=== PATIENT | female | born 1985 | race African-American/Black ===

== ENCOUNTER 2024-07-14 08:51 | Outpatient (CLI) | payer OTHER, SELFPAY ==
--- NOTE | ~2024-07-14 | MM_ITS ---
EXAMINATION: MM screening sanju BI w foreign HISTORY: Screening TECHNIQUE: Craniocaudal and mediolateral oblique 3-D tomosynthesis images were obtained and synthetic 2-D images were generated. CAD analysis was submitted and interpreted. COMPARISON: None. BREAST PARENCHYMAL COMPOSITION: The breasts are heterogeneously dense, which may obscure small masses . FINDINGS: 7.5mm asymmetry within the upper outer right breast for which spot compression followed by a possible ultrasound is suggested. Otherwise unremarkable parenchymal pattern without suspicious microcalcifications or architectural di stortion. IMPRESSION: 7.5mm asymmetry within the upper outer right breast for which spot compression followed by a possible ultrasound is suggested. BI-RADS Category 0: Incomplete: Needs additional imaging evaluation. Reviewed, dictated and finalized at location A.
--- OUTSIDE RECORDS SUMMARY | 2024-07-14 09:38 | XMS_ITS | Clinical Summary ---
Author Organization [facility] [place] [address] [place] [address] [place] [id number] Care Team Providers Care Senior Engineering Associate Name Role Phone No, Physician Primary Care Provider [phone] Allergies No known active allergies Active Problems Problem Noted Date Diagnosed Date Abnormal CT scan 12/23/2023 Social History Tobacco Use Types Packs/Day Years Used Date Smoking Tobacco: Never Assessed Personal Safety Answer Date Recorded Have you ever been in or are you currently in a harmful physical or emotional relationship or is someone making you feel afraid or unsafe? 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 Gender Identity Not on file Sexual Orientation Not on file Obstetrics History Para Term AB IAB SAB Ectopic Multiple Livin g Live Births 1 Date Outcome GA Total Labor Labor/2nd/3rd Weight Sex Type Anes PTL Nikky A1 A5 Name Clin Last Filed Vital Signs Vital Sign Reading Time Taken Comments Blood Pressure 128/96 12/23/2023 12:10 PM CDT Pulse 72 12/23/2023 12:10 PM CDT Temperature 36.7 C (98.1 F) 12/23/2023 6:37 AM CDT Respiratory Rate 19 12/23/2023 6:37 AM CDT Oxygen Saturation 100% 12/23/2023 12:10 PM CDT Inhaled Oxygen Concentration - - Weight 80.8 kg (178 lb 2.1 oz) 12/23/2023 6:37 A M CDT Height 160 cm (5' 3 ) 12/23/2023 6:37 AM CDT Body Mass Index 31.55 12/23/2023 6:37 AM CDT Plan of Treatment Health Maintenance Due Date Last Done Comments Breast Cancer Screening-Mammogram 1983 Cervical Cancer Screening 1983 Depression Screening 1983 Hepatitis C Screening 1983 DTaP/Tdap/Td Vaccine (6 - Tdap) 1994 12/13/1987, 11/08/1986, 10/08/1985, Additional history exists Varicella Vaccines (1 of 2 - 13+ 2-dose series) 1996 Hepatitis B Screening 2001 Regular Well Visit/Exam 18-64 2001 Influenza Vaccine (#1) 2023 HPV Vaccines Aged Out No longer eligi ble based on patient's age to complete this topic Pneumococcal vaccine <65 Aged Out No longer eligible based on patient's age to complete this topic Insurance [employer] [place], [place] Care Teams Senior Engineering Associate Relationship Specialty Start Date End Date No, Physician PCP - General 03/19/22
--- OUTSIDE RECORDS SUMMARY | 2024-07-14 09:38 | XMS_ITS | Referral Summary ---
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
--- OUTSIDE RECORDS SUMMARY | 2024-07-14 09:38 | XMS_ITS | Data Portability ---
Author Organization [facility] Address [address] [place] [address] Assessment Encounter Date Assessment Date Assessment LastModified by Organization Details LastModified Time 06/21/2017 06/21/2017 32 y.o. recent termination. C/o vaginal itching. Discussed inability to really assess for yeast infection with vaginal bleeding but due to recent antibiotic use Diflucan would be ordered. CBC due to pt's. description of heavy post procedure bleeding. Cultures obtained. Sumit to be contacted for positive results, will RTC in September for annuals. Not available 06/21/2017 15:04:34 Plan of Treatment Reminders Order Date Submit Date Provider Last Modified By Organization Details Last Modified Time Details Appointments None recorded. Lab CBC w/ auto diff 2022 023 [facility], [address] [place] [address], [address], [place], [address], 3 15:11:38 lipid panel, serum 2022 023 [facility], [address] [place] [address], [address], [place], [address], 3 15:11:39 CMP, serum or plasma 2022 023 [facility], [address] [place] [address], [address], [place], [address], 3 15:11:38 HbA1c (hemoglobi n A1c), blood 2022 023 [facility], [address], [address], [place], [address], 3 15:11:38 TSH, ultra-sens itive, serum 2022 023 [facility], [address] [facility], [address], [place], [address], 3 15:11:38 vitamin D, 25-hydroxy , total, serum 2022 023 [facility], [address] [facility], [address], [place], [address], 3 15:11:37 CT + NG + TV, DNA, urine/swab 2017 018 [facility] (Lab), [address], [place], [address], 8 23:06:54 CBC w/ diff [email or web address] [place] [address] (Lab), [address], [place], [address], 3 15:07:55 CT + NG + TV, DNA, urine/swab 2016 017 [facility] (Lab), [address], [place], [address], 7 21:14:17 RPR (rapid plasma reagin), serum 2016 017 [facility] (Lab), [address], [place], [address], 7 07:17:40 HIV (1+2) Ab screen, serum 2016 017 [facility] (Lab), [address], [place], [address], 7 09:22:01 wet mount, vaginal 2016 017 [email or web address] In-Office Order, Internal Use Only DO Not Attach Compendium DO Not Attach Compendium, Do Not Delete/merge, [id number] 7 16:14:06 wet mount, vaginal 2016 017 [email or web address] 3 In-Office Order, Internal Use Only DO Not Attach Compendium DO Not Attach Compendium, Do Not Delete/merge, [id number] 7 12:29:18 wet mount, vaginal 2016 017 GLORY In-Office Order, Internal Use Only DO Not Attach Compendium DO Not Attach Compendium, Do Not Delete/merge, [id number] 7 11:58:37 CT + NG DNA, PCR, unspecifie d specimen 2016 017 [email or web address] [facility], [address] [facility], [address], [place], [address], 7 10:25:45 wet mount, vaginal 2015 016 [id number] In-Office Order, Internal Use Only DO Not Attach Compendium DO Not Attach Compendium, Do Not Delete/merge, [id number] 6 04:33:05 CT + NG DNA, PCR, unspecifie d specimen 2015 016 [email or web address] [facility], [address] [facility], [address], [place], [address], 6 10:17:07 Referral None recorded. Procedures excision, skin tag (PROC) 2016 017 Not available 3 15:07:55 Surgeries None recorded. Imaging None recorded. Medication Orders fluticason e propionate 50 mcg/actuat ion nasal spray,susp ension 2022 023 [id number] [facility], [address], [place], [address], 3 15:11:33 Diflucan 150 mg tablet 2017 018 Not available 8 15:04:46 fluconazol e 150 mg tablet 2016 017 INTERFACE Not available 7 16:14:11 metronidaz ole 500 mg tablet 2016 017 INTERFACE Not available 7 16:14:12 fluconazol e 150 mg tablet 2016 017 INTERFACE Not available 7 12:29:22 Zithromax 500 mg tablet 2016 017 INTERFACE Not available 7 12:29:23 Flagyl 500 mg tablet 2015 016 [email or web address]_ [id number] Not available 6 04:33:15 Patient Targets Encounter Date Encounter Id Patient Goals Patient Target Last Modified By Organization Details Last Modified Time To avoid unplanned Not available 06/21/2017 15:05:35 Patient Instructions Encounter Date Encounter Id Patient Instructions Last Modified By Organization Details Last Modified Time 03/28/2016 [id number] bacterial vaginosis: care instructions [email or web address] Not available 03/28/2016 16:53:49 05/24/2016 [id number] skin tag removal : care instructions [email or web address] Not available 05/24/2016 13:01:22 R&B of skin tag removal discussed pt. accepts Suture tied around skin tag. Info on skin tag removal given Not available 05/24/2016 12:29:16 10/02/2016 [id number] bacterial vaginosis: care instructions Not available 10/02/2016 16:17:59 pt. wants nexplanon again. pt. told I will be leaving end of September. Not available 10/02/2016 16:13:59 06/21/2017 [id number] Pt. instructed t o RTC if needs for protection arise Not available 06/21/2017 15:05:57 01/17/2023 [id number] allergies: care instructions Not available 01/17/2023 15:11:29 managing your allergies: care instructions Not available 01/17/2023 15:11:29 A healthy lifestyle: care instructions Not available 01/17/2023 15:11:29 Reason for Referral None Reported. Results Created Date Observation Date Name Description Value Unit Range Abnormal Flag Note LastModifiedBy Organization Detail LastModifiedTime 10/03/19 17 10/02/2016 dimas rawls Clue Cells positi ve Not Available In-Office Order Internal Use Only DO Not Attach Compendium DO Not Attach Compendium, Do Not Delete/merge, [id number] 10/02/2016 16:11:02 10/03/19 17 10/02/2016 dimas rawls Trichomonas negati ve Not Available In-Office Order Internal Use Only DO Not Attach Compendium DO Not Attach Compendium, Do Not Delete/merge, [id number] 10/02/2016 16:11:02 05/24/19 17 05/24/2016 dimas rawls Clue Cells negati ve Not Available In-Office Order Internal Use Only DO Not Attach Compendium DO Not Attach Compendium, Do Not Delete/merge, [id number] 05/24/2016 12:14:42 05/24/19 17 05/24/2016 dimas rawls Trichomonas negati ve Not Available In-Office Order Internal Use Only DO Not Attach Compendium DO Not Attach Compendium, Do Not Delete/merge, [id number] 05/24/2016 12:14:42 03/28/20 16 03/28/2016 dimas rawls Clue Cells positi ve Not Available In-Office Order Internal Use Only DO Not Attach Compendium DO Not Attach Compendium, Do Not Delete/merge, [id number] 03/28/2016 15:33:11 03/28/20 16 03/28/2016 dimas rawls Trichomonas negati ve Not Available In-Office Order Internal Use Only DO Not Attach Compendium DO Not Attach Compendium, Do Not Delete/merge, [id number] 03/28/2016 15:33:11 02/23/20 16 02/23/2016 dimas rawls Clue Cells positi ve Not Available In-Office Order Internal Use Only DO Not Attach Compendium DO Not Attach Compendium, Do Not Delete/merge, [id number] 02/23/2016 15:29:05 02/23/20 16 02/23/2016 wet mount , vagin al Trichomonas negati ve Not Available In-Office Order Internal Use Only DO Not Attach Compendium DO Not Attach Compendium, Do Not Delete/merge, [id number] 02/23/2016 15:29:05 01/18/20 16 01/18/2016 urina lysis , dipst ick Leukocytes Negati ve Not Available In-Office Order Internal Use Only DO Not Attach Compendium DO Not Attach Compendium, Do Not Delete/merge, [id number] 01/18/2016 16:04:02 01/18/20 16 01/18/2016 urina lysis , dipst ick Nitrite negati ve Not Available In-Office Order Internal Use Only DO Not Attach Compendium DO Not Attach Compendium, Do Not Delete/merge, [id number] 01/18/2016 16:04:02 01/18/20 16 01/18/2016 urina lysis , dipst ick Urobilinogen 1 Not Available In-Of fice Order Internal Use Only DO Not Attach Compendium DO Not Attach Compendium, Do Not Delete/merge, 01/18/2016 16:04:02 01/18/20 16 01/18/2016 urina lysis , dipst ick Protein Negati ve Not Available In-Office Order Internal Use Only DO Not Attach Compendium DO Not Attach Compendium, Do Not Delete/merge, 01/18/2016 16:04:02 01/18/20 16 01/18/2016 urina lysis , dipst ick pH 6.0 Not Available In-Office Order Internal Use Only DO Not Attach Compendium DO Not Attach Compendium, Do Not Delete/merge, 01/18/2016 16:04:02 01/18/20 16 01/18/2016 urina lysis , dipst ick Blood Non-He molyze d: Trace Not Available In-Office Order Internal Use Only DO Not Attach Compendium DO Not Attach Compendium, Do Not Delete/merge, 01/18/2016 16:04:02 01/18/20 16 01/18/2016 urina lysis , dipst ick Specific Mangham 1.030 Not Available In-Off ice Order Internal Use Only DO Not Attach Compendium DO Not Attach Compendium, Do Not Delete/merge, 01/18/2016 16:04:02 01/18/20 16 01/18/2016 urina lysis , dipst ick Ketone Negati ve Not Available In-Office Order Internal Use Only DO Not Attach Compendium DO Not Attach Compendium, Do Not Delete/merge, 01/18/2016 16:04:02 01/18/20 16 01/18/2016 urina lysis , dipst ick Bilirubin Negati ve Not Available In-Office Order Internal Use Only DO Not Attach Compendium DO Not Attach Compendium, Do Not Delete/merge, 01/18/2016 16:04:02 01/18/20 16 01/18/2016 urina lysis , dipst ick Glucose Negati ve Not Available In-Office Order Internal Use Only DO Not Attach Compendium DO Not Attach Compendium, Do Not Delete/merge, 01/18/2016 16:04:02 01/18/20 16 01/18/2016 urina lysis , dipst ick Appearance Clear Not Available In-Offi ce Order Internal Use Only DO Not Attach Compendium DO Not Attach Compendium, Do Not Delete/merge, 01/18/2016 16:04:02 01/18/20 16 01/18/2016 urina lysis , dipst ick Color Yellow Not Available In-Office Order Internal Use Only DO Not Attach Compendium DO Not Attach Compendium, Do Not Delete/merge, 01/18/2016 16:04:02 01/18/20 16 01/18/2016 pregn aman test, urine HCG negati ve Not Available In-Office Order Internal Use Only DO Not Attach Compendium DO Not Attach Compendium, Do Not Delete/merge, 01/18/2016 15:43:34 03/28/20 16 03/30/2016 chlam ydiA/ Gonoc occus , ROBERT chlamydia trachomatis, ROBERT NEGATI VE negati ve Not Available [facility] (Lab) [address] [facility], [place], [address], 03/30/2016:19:07 03/28/20 16 03/30/2016 chlam ydiA/ Gonoc occus , ROBERT neisseria gonorrhoeae, ROBERT NEGATI VE negati ve Not Available [facility] (Lab) [address] [place], [address], 03/30/2016 09:19:07 05/24/19 17 2016 chlam ydia + gonor teo DNA panel , unspe cifie d speci men chlamydia trachomatis, ROBERT NEGATI VE negati ve Not Available [facility] (Lab) [address] [place], [address], 2016 09:10:27 05/24/19 17 2016 chlam ydia + gonor teo DNA panel , unspe cifie d speci men neisseria gonorrhoeae, ROBERT NEGATI VE negati ve Not Available [facility] (Lab) [address] [place], [address], 2016 09:10:27 10/03/19 17 10/03/2016 RPR (rapi d plasm a reagi n), serum RPR NON REACTI VE non reacti ve Not Available [facility] (Lab) [address] [facility], [place], [address], 10/03/2016 07:17:40 10/03/19 17 10/03/2016 HIV (1+2) Ab scree n, serum HIV 4TH generation NON REACTI VE non reacti ve Not Available [facility] (Lab) [address] [place], [address], 10/03/2016 09:22:01 10/03/19 17 10/03/2016 CT + NG + TV, DNA, urine /swab chlamydia by ROBERT NEGATI VE negati ve Not Available [facility] (Lab) [address] [place], [address], 10/03/2016 21:14:17 10/03/19 17 10/03/2016 CT + NG + TV, DNA, urine /swab gonococcus by ROBERT NEGATI VE negati ve Not Available [facility] (Lab) [address] [place], [address], 10/03/2016 21:14:17 10/03/19 17 10/03/2016 CT + NG + TV, DNA, urine /swab trich vag by ROBERT NEGATI VE negati ve Not Available [facility] (Lab) [address] [place], [address], 10/03/2016 21:14:17 06/22/19 18 06/21/2017 CBC w/ auto diff WBC 5.1 K/uL 3.4-10 .8 Not Available [facility] (Lab) [address] [place], [address], 06/21/2017 19:51:43 06/22/19 18 06/21/2017 CBC w/ auto diff red blood count 4.4 M/uL 4.2-5. 4 Not Available [facility] (Lab) [address] [facility], [place], [address], 06/21/2017 19:51:43 06/22/19 18 06/21/2017 CBC w/ auto diff hemoglobin 12.4 g/dL 11.5-1 5.5 Not Available [facility] (Lab) [address] [place], [address], 06/21/2017 19:51:43 06/22/19 18 06/21/2017 CBC w/ auto diff hematocrit 37.9 % 36.0-4 8.0 Not Available [facility] (Lab) [address] [place], [address], 06/21/2017 19:51:43 06/22/19 18 06/21/2017 CBC w/ auto diff MCV 87 fL 80-95 Not Available [facility] (Lab) [address] [place], [address], 06/21/2017 19:51:43 06/22/19 18 06/21/2017 CBC w/ auto diff MCH 28 pg 27-32 Not Available [facility] (Lab) [address] [place], [address], 06/21/2017 19:51:43 06/22/19 18 06/21/2017 CBC w/ auto diff MCHC 33 g/dL 32-36 Not Available [facility] (Lab) [address], [place], [address], 06/21/2017 19:51:43 06/22/19 18 06/21/2017 CBC w/ auto diff platelets 292 K/uL 155-37 9 Not Available [facility] (Lab) [address] [place], [address], 06/21/2017 19:51:43 06/22/19 18 06/21/2017 CBC w/ auto diff RDW 14.8 % 11.5-1 4.5 high Not Available [facility] (Lab) [address] [place], [address], 06/21/2017 19:51:43 06/22/19 18 06/21/2017 CBC w/ auto diff MPV 11.3 fL 8.9-12 .7 Not Available [facility] (Lab) [address] [place], [address], 06/21/2017 19:51:43 06/22/19 18 06/21/2017 CBC w/ auto diff neutrophils absolute 2.4 K/uL 1.4-7. 0 Not Available [facility] (Lab) [address] [place], [address], 06/21/2017 19:51:43 06/22/19 18 06/21/2017 CBC w/ auto diff lymphs (absolute) 2.1 K/uL 0.7-3. 1 Not Available [facility] (Lab) [address] [place], [address], 06/21/2017 19:51:43 06/22/19 18 06/21/2017 CBC w/ auto diff monocytes (absolute) 0.4 K/uL 0.1-0. 9 Not Available [facility] (Lab) [address] [place], [address], 06/21/2017 19:51:43 06/22/19 18 06/21/2017 CBC w/ auto diff eos (absolute) 0.2 K/uL 0.0-0. 4 Not Available [facility] (Lab) [address] [place], [address], 06/21/2017 19:51:43 06/22/19 18 06/21/2017 CBC w/ auto diff baso (absolute) 0.0 K/uL 0.1-0. 3 low Not Available [facility] (Lab) [address] [place], [address], 06/21/2017 19:51:43 06/22/19 18 06/21/2017 CBC w/ auto diff neut % 47.1 % 40.0-7 4.0 Not Available [facility] (Lab) [address] [place], [address], 06/21/2017 19:51:43 06/22/19 18 06/21/2017 CBC w/ auto diff lymphs % 41.0 % 14.0-4 6.0 Not Available [facility] (Lab) [address] [place], [address], 06/21/2017 19:51:43 06/22/19 18 06/21/2017 CBC w/ auto diff mono % 6.9 % 4.0-12 .0 Not Available [facility] (Lab) [address] [place], [address], 06/21/2017 19:51:43 06/22/19 18 06/21/2017 CBC w/ auto diff eos % 5 % <=5 Not Available [facility] (Lab) [address] [place], [address], 06/21/2017 19:51:43 06/22/19 18 06/21/2017 CBC w/ auto diff baso % 0.4 % 0.1-1. 1 Not Available [facility] (Lab) [address] [place], [address], 06/21/2017 19:51:43 06/22/19 18 06/24/2017 CT + NG + TV, DNA, urine /swab chlamydia by ROBERT NEGATI VE negati ve Not Available [facility] (Lab) [address] [facility], [place], [address], 06/24/2017 23:06:54 06/22/19 18 06/24/2017 CT + NG + TV, DNA, urine /swab gonococcus by ROBERT NEGATI VE negati ve Not Available [facility] (Lab) [address] [facility], [place], [address], 06/24/2017 23:06:54 06/22/19 18 06/24/2017 CT + NG + TV, DNA, urine /swab trich vag by ROBERT NEGATI VE negati ve Not Available [facility] (Lab) [address] [place], [address], 06/24/2017 23:06:54 11/03/19 17 11/02/2016 CT, abdom en + pelvi s, w/ contr ast No observ ation record ed. Not Available 2022 15:07:51 Result Notes None recorded. Problems Name Problem SNOMED Code Status Onset Date Resolution Date Notes Provider Name and Address Organization Details Recorded Time Sexually transmitted infectious disease 0144030 Active SCOTT Perez, [place] - [facility] 6 15:10:17 Bacterial vaginosis 316414364 Active Terri Danielson [place] null, [place] [facility] 6 15:10:17 Abdominal pain 06271681 Active Kaveh Delacruz MD Attn: Maci swan,[address] [facility], [place], [address] , - 6 16:04:08 Cyst of ovary 01258897 Active SCOTT Perez[place] [facility] 6 15:10:17 Infection by Trichomonas 94213657 Active Terri Danielson [place] null, [place] [facility] 6 15:10:17 Complaining of a rash Active Terri Danielson MA null, [facility] 6 15:10:17 Allergic rhinitis 45105774 Active Kaveh Delacruz MD Attn: Maci swan,[address] [facility], [place], [address], [facility] 6 16:04:08 Problem Notes None recorded. Procedures Surgical History Date Name Laterality Status Provider Name and Address Organization Details Recorded Time 5 Control Implant Removal completed Don Oh MD Attn: Ananda, [facility], [place], [address], [facility] 08/16/2014 13:06:28 Imaging Results Imaging Date Name Status LastModified by Organiz ation Details LastModified Time 11/02/2016 CT, abdomen + pelvis, w/ contrast completed Information not available 01/17/2023 15:07:51 Procedure Notes None recorded. Medical Equipment None Reported. Allergies No known drug allergies Medications Name Sig Start Date Stop Date Status Note LastModified by Organization Details LastModified Time amoxicillin 500 mg capsule TAKE 1 CAPSULE (500 MG TOTAL) BY MOUTH EVERY 8 (EIGHT) HOURS FOR 7 DAYS active Not Available Not Available No t Available fluconazole 150 mg tablet TAKE 1 TABLET BY MOUTH EVERY DAY DIRECTED FOR 1 DAY active Not Available Not Available No t Available clarithromyc in 500 mg tablet active Not Available Not Available Not Available hydrocodone 5 mg-acetamino phen 325 mg tablet active Not Available Not Available Not Available sucralfate 1 gram tablet active Not Available Not Available Not Available ondansetron HCl 4 mg tablet active Not Available Not Available Not Available metronidazol e 500 mg tablet TAKE 1 TABLET BY MOUTH TWICE DAILY FOR 7 DAYS active Not Available Not Available No t Available nystatin-tri amcinolone 100,000 unit/gram-0. 1 % topical ointment APPLY TO AFFECTED AREA TWICE A DAY FOR 7 DAYS active Not Available Not Available No t Available amoxicillin 875 mg tablet TAKE 1 TABLET BY MOUTH TWICE DAILY UNTIL FINISHED active Not Available Not Available No t Available famotidine 20 mg tablet active Not Available Not Available Not Available hydrocortiso ne 1 % topical cream APPLY A THIN LAYER TO THE AFFECTED AREA(S) BY TOPICAL ROUTE 2 TIMES PER DAY active Not Available Not Available No t Available nystatin 100,000 unit/gram topical cream APPLY TO THE AFFECTED AREA(S) BY TOPICAL ROUTE 2 TIMES PER DAY active Not Available Not Available No t Available ranitidine 150 mg tablet Take 1 tablet twice a day by oral route as directed for 90 days. active Not Available Not Available No t Available omeprazole 20 mg capsule,hema yed release active Not Available Not Available Not Available ergocalcifer ol (vitamin D2) 1,250 mcg (50,000 unit) capsule TAKE 1 CAPSULE EVERY WEEK BY ORAL ROUTE. active Not Available Not Available No t Available ondansetron 4 mg disintegrati ng tablet TAKE 1 TABLET BY MOUTH EVERY 8 HOURS NEEDED FOR NAUSEA OR VOMITING FOR UP TO 3 DAYS. active Not Available Not Available No t Available fluticasone propionate 50 mcg/actuatio n nasal spray,suspen mukesh SPRAY 2 SPRAYS EVERY DAY BY INTRANASAL ROUTE FOR 90 DAYS. active Not Available Not Available No t Available naproxen 500 mg tablet Take 1 tablet twice a day by oral route for 7 days. active Not Available Not Available No t Available azithromycin 500 mg tablet Take 1 tablet every day by oral route for 3 days. active Not Available Not Available No t Available medroxyproge sterone 150 mg/mL intramuscula r syringe INJECT 1 ML INTRAMUSCUL GENI EVERY 3 MONTHS active Not Available Not Available No t Available nitrofuranto in monohydrate/ macrocrystal s 100 mg capsule Take 1 capsule every 12 hours by oral route for 7 days. active Not Available Not Available Not Available Nexplanon 68 mg subdermal implant Inject 1 implant by subcutaneou s route. 2015 active Not Available Not Available Not Avai lable Vitals Date Recorded Body height Body mass index (BMI) Body weight Systolic blood pressure Diastolic blood pressure Provider Name and Address Organization Details Last Updated DateTime 06/21/2017 160.02 cm 26 kg/m2 63481.08 g 112 mm[Hg] 70 mm[Hg] Karina Alatorre [place] - [facility] 8 14:48:25 Date Recorded Body height Body mass index (BMI) Body weight Oxygen saturation Oxygen saturation in Arterial blood by Pulse oximetry Pain severity - 0-10 verbal numeric rating [Score] - Reported Heart rate Respiratory rate Body temperature Systolic blood pressure Diastolic blood pressure Provider Name and Address Organization Details Last Updated DateTime 3 160.02 cm 30.7 kg/m2 72445.5 8 g 99 % 99 % 0 98 /min 18 /min 97.9 [degF] 122 mm[Hg] 85 mm[Hg] Fabricio Henley MA [facility] 3 14:40:42 Date Recorded Body height Body weight Body mass index (BMI) Systolic blood pressure Diastolic blood pressure Systolic blood pressure Diastolic blood pressure Provider Name and Address Organization Details Last Updated DateTime 6 160.02 cm 41533.5 5 g 27.6 kg/m2 100 mm[Hg] 68 mm[Hg] 102 mm[Hg] 40 mm[Hg] Mckay Renee MA [facility] 6 15:16:07 Date Recorded Body height Body weight Body mass index (BMI) Systolic blood pressure Diastolic blood pressure Provider Name and Address Organization Details Last Updated DateTime 05/24/2016 160.02 cm 00258.82 g 27.5 kg/m2 120 mm[Hg] 70 mm[Hg] Brenda Walker MA [facility] 7 11:47:27 Date Recorded Body height Body mass index (BMI) Body weight Systolic blood pressure Diastolic blood pressure Provider Name and Address Organization Details Last Updated DateTime 10/02/2016 160.02 cm 25.7 kg/m2 28035.32 g 110 mm[Hg] 70 mm[Hg] Brenda Walker MA [facility] 7 15:46:36 Social History Question Answer Notes LastModified by Organizat ion Details LastModified Time Tobacco Smoking Status Current Every Day Smoker marijuana Fabricio Henley MA [facility] 01/17/2023 14:41:54 What Is Your Level Of Alcohol Consumption? Occasional [id number] Information not available 02/23/2020 What Is Your Level Of Caffeine Consumption? Heavy [id number] Information not available 02/23/2020 How Much Tobacco Do You Chew? None [id number] Information not available 02/23/2020 What Type Of Diet Are You Following? REGULAR [id number] Information not available 02/23/2020 Which Illicit Or Recreational Drugs Have You Used? None [id number] Information not available 02/23/2020 What Is Your Occupation? [employer] [id number] Information not available 02/23/2020 Are There Any Guns Present In Your Home? No [id number] Information not available 02/23/2020 Hard Of Hearing Or Deaf In One Or Both Ears? No [facility] Information not available 01/18/2016 Legally Blind In One Or Both Eyes? No [facility] Information not available 01/18/2016 Marital Status Single [facility] Informatio n not available 01/18/2016 What Was The Date Of Your Most Recent Tobacco Screening? 01/17/2023 Information not available 01/17/2023 Performs Monthly Self-breast Exam? No [facility] Information not available 01/18/2016 Seat Belts Used Routinely Yes [facility] Information not available 01/18/2016 Smoke Alarm In Home Yes [facility] Information not available 01/18/2016 General Stress Level Low [facility] Information not available 01/18/2016 Do You Use Sunscreen Routinely? Yes [id number] Information not available 02/23/2020 Has Tobacco Cessation Counseling Been Provided? Yes Information not available 01/17/2023 On What Date Was Tobacco Cessation Counseling Provided? 01/17/2023 Information not available 01/17/2023 Sex: Unknown Functional Status Question Answer Note LastModified by Organization D etails LastModified Time What is your exercise level? None [id number] Information not available 02/23/2020 Mental Status None recorded. Family History Relationship Description Onset Age of this Age Resolved Age Notes LastModified by Organization Details LastModified Time Mother No current problems or disability [facility] Not available 01/17 15:10:17 Father Relative killed 20 hung in senior [facility] Not available 01/18/2016 15:10:17 Medical History Condition Response Heart Problems N Other N High Blood Pressure N Breast Cancer N Thyroid Problems N Kidney or Bladder Problems N GI Problems N Lung Disease N Depression N Blood Clots N Acne N Breast Problem N Eating Disorder N Anemia N Anesthesia Complications N Headaches/Migraines N Anxiety Disorder N Diabetes N Ovarian Cancer N Muscle, Joint, or Bone Problems N Blood Transfusions N Arthritis N Seizures/Epilepsy N Polyps N Infertility N Acid Reflux (GERD) N Cancer N Stroke N Abuse/Domestic Violence N Asthma N Endometriosis N High Cholesterol N Hepatitis N Liver Disease N Heart Disease N Fibromyalgia N Pre-Eclampsia N Hypertension N Osteoporosis N Kidney Disease N Gynecological History Statement/Question Response Flow Heavy Date of LMP STIs/STDs Y HPV Vaccine N Duration of Flow (days) 4 Age at Menarche 10 Current Control Method None Age at First Child 12 Frequency of Cycle (Q days) 26 Sexually Active? Y Menses Monthly Y LMP Approximate Obstetrics History GPAL:G 4 P 3 0 1 3 Type Value Multiple Births 0 Full Term 3 Induced 0 Spontaneous 1 Premature 0 Living 3 Ectopics 0 Total 4 Past Encounters Encounter ID Performer Location Encounter Start Date Encounter Closed Date Diagnosis/Indication Diagnosis SNOMED-CT Code Diagnosis ICD10 Code Diagnosis Note [id number] Bethanie Kearney MA [facility] [[email or web address] ([place]) [address] [place] [address] 08/02/2014 10:46:31 08/02/2014 11:43:57 Gynecologic examination 43406987 Sexually t ransmitted infectious disease 1606973 [id number] Jeannine Tickkervin [facility] [[email or web address] ([place]) [address] [place] [address] 08/16/2014 11:04:22 08/16/2014 13:10:25 Uses contraception [id number] Brenda Walker MA [facility] [[email or web address] ([place]) [address] [place] [address] 12/06/2014 11:06:51 12/06/2014 17:41:11 Bacterial vaginosis [id number] [facility] [[email or web address] ([place]) [address] [place] [address] 12/31/2014 12:18:28 12/31/2014 14:40:42 Bacterial vaginosis 987101703 [id number] Don Oh MD [facility] [[email or web address] ([place]) [address] [place] [address] 05/02/2015 12:41:50 05/15/2015 03:48:51 Abdominal pain 24407063 R10.9 Cyst of ovary 94520554 N 83.20 Contraception care 53750 5005 Z30.40 [id number] Don Oh MD [facility] [[email or web address] ([place]) [address] [place] [address] 08/15/2015 09:41:27 08/15/2015 14:46:06 Gynecologic examination 27825906 Z01.419 Infection by Trichomonas 32171557 A59.9 [id number] Don Oh MD [facility] [[email or web address] ([place]) [address] [facility] [place] [address] 09/28/2015 16:08:54 09/28/2015 17:03:14 Complaining of a rash 607763107 R21 Contraception care 84709 5005 Z30.40 [id number] Kaveh Delacruz MD [address] [address] 01/18/2016 14:57:03 01/20/2016 09:40:47 Allergic rhinitis 74121542 J30.9 once daily and follow up... Abdominal pain 62718225 R10.9 u/s and try zantac... follow up... [id number] Don Oh MD [facility] [[email or web address] ([place]) [address] [place] [address] 02/23/2016 14:07:32 02/23/2016 17:02:42 Bacterial vaginosis 916055610 N76.0 Urinary tr act infectious disease 62868789 N39.0 [id number] Don Oh MD [facility] [[email or web address] ([place]) [address] [facility] [place] [address] 03/28/2016 14:56:42 03/28/2016 16:18:23 Bacterial vaginosis 829776340 N76.0 [id number] Don Oh MD [facility] [[email or web address] [place]) [address] [facility] [place] [address] 05/24/2016 11:21:13 05/24/2016 13:53:27 Vaginitis and vulvovaginitis 618106729 N76.0 Skin tag 187949001 L91.8 [id number] Don Oh MD [facility] [[email or web address] ([place]) [address] [place] [address] 10/02/2016 15:31:04 10/02/2016 17:13:48 Gynecologic examination 31839109 Z01.419 Bacterial vaginosis 4197 81526 N76.0 [id number] Alana Weiner [facility] ([place]) [address] [place] [address] 06/21/2017 14:36:40 06/21/2017 15:17:57 Elective termination of 56633351 Z33.2 Vaginitis 51886443 N76.0 [id number] Kaveh Delacruz MD [address] [address] 01/17/2023 14:21:24 01/21/2023 14:41:40 Obesity 497025962 E66.9 bmi=30.7.. . 1 months... Allergic rhinitis 762842 04 J30.9 once daily and follow up... Health Concerns Section Related Observation LastModified by Organization Detai ls LastModified Time None Recorded Concern Status LastModified by Organization Details LastModified Time None Recorded Advance Directives Directive None Recorded Payers Encounter Date Sequence Insurance Name Policy Number Policy Ruiz Covered Member ID Ruiz Member ID Guarantor Name 03/28/2016 1 [facility] (MEDICAID HMO) [id number] Letaisha Green [id number] Letaisha Green 05/24/2016 1 [facility] (MEDICAID HMO) [id number] Letaisha Green [id number] Letaisha Green 10/02/2016 1 [facility] (MEDICAID HMO) [id number] Letaisha Green [id number] Letaisha Green 06/21/2017 1 [facility] (MEDICAID HMO) [id number] Letaisha Green [id number] Letaisha Green 01/17/2023 1 [facility] [id number] Letaisha Green [id number] Letaisha Green Notes Date Note Type Note Provider Name and Address Organization Details Recorded Time 03/28/2016 text/html 30 yr. old aaf c /o vaginal discharge for one week LMP 16 uses no control Don Oh MD Attn: [address] [facility] [address], [place], [address], [facility] 03/28/2016 15:35:19 05/24/2016 text/html 30 yr. aaf c/o vaginal discharge for one week. LMP 04/28/16 uses no control. Pt. also c/o skin tag on her neck she wants it removed. Don Oh MD Attn: [address] [facility], [place], [address], [facility] 05/24/2016 12:30:06 10/02/2016 text/html 31 yr. old aaf here for annual LMP 09/20/16 would like nexplanon for control. No other problems. ? vaginal discharge Don Oh MD Attn: Accounting,[address] [facility], [place], [address], [facility] 10/02/2016 16:15:03 06/21/2017 text/html Presents s/p EAB 06-04-2017 at the [facility]. Vacum procedure still having some bleeding. Current c/o vaginal itching, did receive antibiotics during procedure. Doesnt want control. Alana Weiner [facility], [place] [facility] 06/21/2017 15:06:29 01/17/2023 text/html throat swells at times... has trouble swallowing... happens after eating certain meals... no sx currently... no fevers/chills/SOB. .. recreational smoker... 1 drink monthly... no cigarette... Kaveh Delacruz MD Attn: [address] [place], [address], [facility] 01/17/2023 15:11:50 OBGyn Episode No OBEpisode recorded.
--- OUTSIDE RECORDS SUMMARY | 2024-07-14 09:38 | XMS_ITS | Clinical Summary ---
Author Organization [facility] [place] [address] [place] [address] Care Team Providers Care Building Construction Supervisor Name Role Phone Unavailable Primary Care Provider Unavailabl e Medications No known medications Active Problems No known active problems Social History Tobacco Use Types Packs/Day Years Used Date Smoking Tobacco: Never Assessed Tobacco Cessation:Counseling Given: Not Answered Comments Unknown Sex and Gender Information Value Date Recorded Sex Assigned at Not on file Legal Sex Female 6:13 AM PDT Gender Identity Not on file Sexual Orientation Not on file Last Filed Vital Signs Vital Sign Reading Time Taken Comments Blood Pressure 102/54 02/14/2022 10:06 AM CDT Pulse 74 02/14/2022 10:06 AM CDT Temperature - - Respiratory Rate - - Oxygen Saturation - - Inhaled Oxygen Concentration - - Weight - - Height - - Body Mass Index - - Plan of Treatment Health Maintenance Due Date Last Done Comments Dental Prophylaxis 1983 Dental Oral Exam 08/16/2022 02/14/2022 Dental X-Ray: Bitewings 08/16/2022 02/14/2022 Dental X-Ray: Full Mouth 02/15/2025 02/14/2022 Dental X-Ray: Panoramic 02/15/2025 02/14/2022 Meningococcal B Vaccine Aged Out No l onger eligible based on patient's age to complete this topic Procedures Procedure Name Priority Date/Time Associated Diagnosis Comments PANORAMIC RADIOGRAPHIC IMAGE Routine 02/14/2022 10:00 AM CDT INTRAORAL - COMPREHENSIVE SERIES OF RADIOGRAPHIC IMAGES Routine 02/14/2022 10:00 AM CDT COMPREHENSIVE ORAL EVALUATION - NEW OR ESTABLISHED PATIENT Routine 02/14/2022 10:00 AM CDT from Last 3 Months or Most Recently Relevant to Health Maintenance Insurance
--- OUTSIDE RECORDS SUMMARY | 2024-07-14 09:38 | XMS_ITS | Encounter Summary ---
Author Organization [facility] [place] Address [address] [place] [address] Care Team Providers Care Circuit Clerk Name Role Phone Unavailable Primary Care Provider Unavailabl e Prior Encounters Date Type Department Care Team Description 02/14/2022 10:00 AM CDT Office Visit [facility] [address] [place] [address] Adela Cook DDS Last Filed Vital Signs Vital Sign Reading Time Taken Comments Blood Pressure 102/54 02/14/2022 10:06 AM CDT Pulse 74 02/14/2022 10:06 AM CDT Temperature - - Respiratory Rate - - Oxygen Saturation - - Inhaled Oxygen Concentration - - Weight - - Height - - Body Mass Index - - Plan of Treatment Not on file Procedures Procedure Name Priority Date/Time Associated Diagnosis Comments INTRAORAL PHOTO Routine 02/14/2022 10:00 AM CDT INTRAORAL PHOTO Routine 02/14/2022 10:00 AM CDT INTRAORAL PHOTO Routine 02/14/2022 10:00 AM CDT INTRAORAL PHOTO Routine 02/14/2022 10:00 AM CDT PANORAMIC RADIOGRAPHIC IMAGE Routine 02/14/2022 10:00 AM CDT INTRAORAL - COMPREHENSIVE SERIES OF RADIOGRAPHIC IMAGES Routine 02/14/2022 10:00 AM CDT COMPREHENSIVE ORAL EVALUATION - NEW OR ESTABLISHED PATIENT Routine 02/14/2022 10:00 AM CDT 19 O AMALGAM FILLING Routine 02/14/2022 12:00 AM CDT Visit Diagnoses Not on file Insurance [facility]
--- OUTSIDE RECORDS SUMMARY | 2024-07-14 09:38 | XMS_ITS | Data Portability ---
Author Organization [facility] Address [address] [place] [address] [place] [address] Assessment Encounter Date Assessment Date Assessment LastModified by Organization Details LastModified Time 04/10/2023 04/10/2023 Annual gynecological exam performed. Patient will come back in a year unless there are new symptoms. Not available 04/10/2023 17:11:23 04/20/2024 04/20/2024 Annual gynecological exam performed. Patient will come back in a year unless there are new symptoms. [email or web address] Not available 04/20/2024 16:25:54 Plan of Treatment Reminders Order Date Submit Date Provider Last Modified By Organization Details Last Modified Time Details Appointments None recorded. Lab unlisted lab - women's health swab plus, ROBERT 2023 024 [facility] (Lab), [address], [place], [address], 5 14:00:26 bacterial vaginosis + vaginitis panel, vaginal [email or web address] (Lab), [address], [place], [address], 5 15:09:41 Referral None recorded. Procedures None recorded. Surgeries None recorded. Imaging MAMMO, screening, digital, bilateral 2023 024 [facility], [address], [place] [address], [place], [address], 5 04:03:34 MAMMO, screening, bilateral [email or web address] [place] [address], [address], [address] [address], [place], [address], 4 16:01:53 Medication Orders metronidazo le 500 mg tablet 2023 024 [id number], [address] [place], [address], 4 17:23:28 fluconazole 150 mg tablet 2023 024 [id number], [address] [place], [address], 4 17:23:28 Diflucan 150 mg tablet 2023 024 [facility] [address], [address], 4 14:15:10 metronidazo le 500 mg tablet 2023 024 [email or web address] [facility] [address], [address], 4 16:26:53 fluconazole 150 mg tablet [address], [address], 4 14:15:07 nystatin-tr iamcinolone 100,000 unit/gram-0 .1 % topical ointment [address], [address], 3 17:17:16 Patient TargetsNo targets recorded. Patient InstructionsNo instructions recorded. Reason for Referral None Reported. Results Created Date Observation Date Name Description Value Unit Range Abnormal Flag Note LastModifiedBy Organization Detail LastModifiedTime 09/11/19 23 09/10/2022 CT/GC AND TRICH OMONA S VAGIN GERRY (RRNA ), SWAB chlamydia trachomatis, PCR NEGATI VE negati ve Not Available [facility] (Lab) [address] [facility], [place], [address], 09/11/2022 19:28:35 09/11/19 23 09/10/2022 CT/GC AND TRICH OMONA S VAGIN GERRY (RRNA ), SWAB neisseria gonorrhoeae, PCR NEGATI VE negati ve Not Available [facility] (Lab) [address] [facility], [place], [address], 09/11/2022 19:28:35 09/11/19 23 09/10/2022 CT/GC AND TRICH OMONA S VAGIN GERRY (RRNA ), SWAB trichomonas vaginalis ribosomal RNA (rrna) NEGATI VE negati ve Not Available [facility] (Lab) [address] [facility], [place], [address], 09/11/2022 19:28:35 09/11/19 23 09/10/2022 VAGIN ITIS/ VAGIN OSIS, DNA PROBE ana sp. detection, direct probe NEGATI VE negati ve Not Available [facility] (Lab) [address] [facility], [place], [address], 09/11/2022 19:28:36 09/11/19 23 09/10/2022 VAGIN ITIS/ VAGIN OSIS, DNA PROBE gardnerella vag. detection, direct probe NEGATI VE negati ve Not Available [facility] (Lab) [address] [place], [address], 09/11/2022 19:28:36 09/11/19 23 09/10/2022 VAGIN ITIS/ VAGIN OSIS, DNA PROBE trichomonas vag. detection, direct probe NEGATI VE negati ve Not Available [facility] (Lab) [address] [facility], [place], [address], 09/11/2022 19:28:36 04/11/20 23 04/11/2023 IMAGE GUIDE D PAP AND HPV REGAR DLESS image guided Pap, HPV regardless of Pap result SEE RESULT S BELOW CASE REPOR T: Cytol ogy Gynec ologi celena Repor t Case: [id number] Autho tami swan Provi rosendo: Gentry vergara , Celine Thompson cted: 04/11 0936 RF TECHNICIAN Order ing Locat ion: [place] [facility] Recei aguilar: 04/12 0737 First Scree n: Strut z, Willi am, CT Rescr een: Preet Perry Speci men: Scree abisai Pap - Image d, Cervi x STATE MENT OF ADEQU ACY: Satis facto ry for evalu ation Trans forma tion zone compo nent absen t. The absen ce of an endoc ervic al compo nent was confi rmed by an addit ional scretank ner. FINAL DIAGN OSIS: Negat franco for Intra epith elial Lesio n or Rickey mcqueen (NIL) . Shift in tam sugge stive of bacte rial vagin osis. Elect sarahy villalobos rhonda d by Preet Perry on 04/17 at 3:27 PM ----- ----- ----- ----- ----- ----- ----- ----- ----- ----- ----- ----- ----- ----- ----- ----- ----- ---- HPV RESUL TS: HPV mRNA E6/E7 : No HPV mRNA Detec eduardo NOTE: This high risk HPV mRNA assay detec ts fourt een high- risk HPV types (16, 18, 31, 33, 35, 39, 45, 51, 52, 56, 58, 59, 66, 68) witho ut diffe renti ation . COMME NT: Slide scree erica manua lly due to rejec tion by the Thinp rep Imagi ng Syste m. CLINI CELENA INFOR MATIO N: Menst rual Statu s: LMP (if appli cable ): Clini celena Histo ry/Pr eviou s Pap: Type of Neopl joseph (if appli cable ): Signi fican t Clini celena Findi ngs: Other Histo ry: Hormo todd (if appli cable ): PAP EDUCA OSMANI L NOTE: The Pap Test is a scree abisai test with an inher ent false negat franco rate. Liqui d-bas ed sampl ing may decre ase, but will not elimi amanda, false negat franco resul ts. A negat franco resul t does not precl ude the prese nce and/o r devel opmen t of disea se, since the prese nce of abnor mal cells in the sampl e depen ds on the locat ion of the lesio n and sampl ing techn ique. Alejandro nued regul ar scree abisai is the best metho d of cance r preve ntion . If repor eduardo cytol ogic findi ng do not corre late with physi celena and/o r histo rical findi ngs, furth er inves tigat ion is recom alexa d, as clini lili warra nted. Not Available [facility] (Lab) [address], [place], [address], 04/17/2023 16:31:13 04/11/20 23 04/11/2023 TRICH OMONA S VAGIN GERRY (RRNA ) trichomonas vaginalis ribosomal RNA (rrna) NEGATI VE negati ve Not Available [facility] (Lab) [address] [facility], [place], [address], 04/17/2023 16:31:14 04/11/20 23 04/11/2023 CT/GC (CHIO) , THINP REP VIAL chlamydia trachomatis, PCR NEGATI VE negati ve Not Available [facility] (Lab) [address] [place], [address], 04/17/2023 16:31:14 04/11/20 23 04/11/2023 CT/GC (CHIO) , THINP REP VIAL neisseria gonorrhoeae, PCR NEGATI VE negati ve Not Available [facility] (Lab) [address] [facility], [place], [address], 04/17/2023 16:31:14 08/21/19 24 08/21/2023 CT/GC AND TRICH OMONA S VAGIN GERRY (RRNA ), SWAB chlamydia trachomatis, PCR Negati ve negati ve Not Available [facility] (Lab) [address] [facility], [place], [address], 08/22/2023 13:04:12 08/21/19 24 08/21/2023 CT/GC AND TRICH OMONA S VAGIN GERRY (RRNA ), SWAB neisseria gonorrhoeae, PCR Negati ve negati ve Not Available [facility] (Lab) [address] [facility] [address], [place], [address], 08/22/2023 13:04:12 08/21/19 24 08/21/2023 CT/GC AND TRICH OMONA S VAGIN GERRY (RRNA ), SWAB trichomonas vaginalis ribosomal RNA (rrna) Negati ve negati ve Not Available [facility] (Lab) [address] [facility] [address], [place], [address], 08/22/2023 13:04:12 12/11/19 24 12/11/2023 VAGIN ITIS/ VAGIN OSIS, DNA PROBE ana sp. detection, direct probe Negati ve negati ve Not Available [facility] (Lab) [address] [place], [address], 12/12/2023 10:15:12 12/11/19 24 12/11/2023 VAGIN ITIS/ VAGIN OSIS, DNA PROBE gardnerella vag. detection, direct probe Positi ve negati ve abnormal Not Available [facility] (Lab) [address] [facility] [address], [place], [address], 12/12/2023 10:15:12 12/11/19 24 12/11/2023 VAGIN ITIS/ VAGIN OSIS, DNA PROBE trichomonas vag. detection, direct probe Negati ve negati ve Not Available [facility] (Lab) [address] [place], [address], 12/12/2023 10:15:12 04/20/20 24 04/20/2024 [facility], ROBERT bacterial vaginosis (bv), tma Positi ve negati ve abnormal Not Available [facility] (Lab) [address] [place], [address], 04/22/2024 14:00:26 04/20/20 24 04/20/2024 [facility] SW[facility]US, ROBERT ana species, tma Negati ve negati ve Not Available [facility] (Lab) [address] [facility] [address], [place], [address], 04/22/2024 14:00:26 04/20/20 24 04/20/2024 [facility] SW[facility]US, ROBERT ana glabrata, tma Negati ve negati ve Not Available [facility] (Lab) [address] [place], [address], 04/22/2024 14:00:26 04/20/20 24 04/20/2024 [facility] SWAB [facility]US, ROBERT trichomonas vaginalis, tma Negati ve negati ve Not Available [facility] (Lab) [address] [place], [address], 04/22/2024 14:00:26 04/20/20 24 04/20/2024 [facility] SW[facility], ROBERT chlamydia trachomatis, PCR Negati ve negati ve Not Available [facility] (Lab) [address] [place], [address], 04/22/2024 14:00:26 04/20/20 24 04/20/2024 [facility] SW[facility] PLUS, ROBERT neisseria gonorrhoeae, PCR Negati ve negati ve Bacte rial vagin osis detec ts the follo wing bacte fly assoc iated with bacte rial vagin osis (BV): Lacto bacil keira (L. gasse ri, L. crisp atus and L. jense josé), Gardn erell a vagin gerry, and Atopo bium vagin ae. A singl e quali tativ e resul t is repor eduardo base on instr ument softw are to deter mine BV posit franco or negat franco statu s. The Nancy [facility] speci es group tests for C. albic ans, C. tropi calis , C. parap marsha is, C. dubli niens is. Testi ng is perfo rmed using the Trans cript ion Media eduardo Ampli ficat ion metho d. Tests for Nancy da glabr ebony, Trich omona s vagin gerry, Chlam ydia trach omati s, and Neiss eria gonor rhoea e are also inclu ded in this panel . Not Available [facility] (Lab) [address], [place], [address], 04/22/2024 14:00:26 Result Notes None recorded. Procedures Surgical History Date Name Laterality Status Provider Name and Address Organization Details Recorded Time 04/11/20 23 Date of Last Pap Smear completed Marisabel Tellez [facility] 08/21/2023 09:19:34 03/22/20 22 termination of completed Bing Lexii [facility] 04/05/2022 14:20:25 Colonoscopy completed Alysha Brewer [facility] 09/10/2022 11:57:52 Imaging Results None recorded. Procedure Notes None recorded. Medical Equipment None Reported. Allergies No known drug allergies Medications Name Sig Start Date Stop Date Status Note LastModified by Organization Details LastModified Time fluconazole 150 mg tablet Take 1 tablet every day by oral route as directed for 1 day. 2023 active Not Available Not Available Not Avai lable metronidazo le 0.75 % (37.5 mg/5 gram) vaginal gel Insert 1 applicato rful every day by vaginal route at bedtime for 5 days. 09/10 completed Not Available Not Available Not Available metronidazo le 500 mg tablet Take 1 tab PO two times per day for 7 days 2023 active Not Available Not Available Not Avai lable nystatin-tr iamcinolone 100,000 unit/gram-0 .1 % topical ointment APPLY TO THE AFFECTED AREA(S) BY TOPICAL ROUTE 2 TIMES PER DAY FOR 7 DAYS 04/10 completed Not Available Not Available Not Available ondansetron 4 mg disintegrat ing tablet TAKE 1 TABLET BY MOUTH EVERY 8 HOURS NEEDED FOR NAUSEA OR VOMITING FOR UP TO 3 DAYS. 04/20 completed Not Available Not Available Not Available fluticasone propionate 50 mcg/actuati on nasal spray,suspe nsion SPRAY 2 SPRAYS EVERY DAY BY INTRANASA L ROUTE FOR 90 DAYS. 08/20 completed Not Available Not Available Not Available medroxyprog esterone 150 mg/mL intramuscul ar syringe INJECT 1 ML INTRAMUSC ULARLY EVERY 3 MONTHS 04/10 completed Not Available Not Available Not Available ibuprofen 09/10 completed Not Available Not Available Not Available Vitamin 09/10 completed Not Available Not Available Not Available Vitals Date Recorded Body height Systolic blood pressure Diastolic blood pressure Provider Name and Address Organization Details Last Updated DateTime 09/10/2022 160.02 cm 117 mm[Hg] 79 mm[Hg] Alysha Brewer [facility] 09/10/2022 11:57:45 Date Recorded Body height Body mass index (BMI) Body weight Systolic blood pressure Diastolic blood pressure Provider Name and Address Organization Details Last Updated DateTime 04/10/2023 160.02 cm 31 kg/m2 70678.66 g 112 mm[Hg] 77 mm[Hg] Shauna Sylvester [facility] 3 17:16:46 Date Recorded Body height Body mass index (BMI) Body weight Systolic blood pressure Diastolic blood pressure Provider Name and Address Organization Details Last Updated DateTime 08/21/2023 160.02 cm 30.1 kg/m2 22913.7 g 129 mm[Hg] 84 mm[Hg] Marisabel Tellez [facility] 4 09:18:31 Date Recorded Body height Body mass index (BMI) Body weight Systolic blood pressure Diastolic blood pressure Provider Name and Address Organization Details Last Updated DateTime 04/20/2024 160.02 cm 32.8 kg/m2 98919.59 g 132 mm[Hg] 87 mm[Hg] Diana Jaimes [facility] 16:55:29 Social History Question Answer Notes LastModified by Organizat ion Details LastModified Time Tobacco Smoking Status Never Smoker Alysha chadwick, [facility] 09/10/2022 11:57:49 Do You Have An Advance Directive? No [email or web address] Information n ot available 04/20/2024 What Is Your Level Of Alcohol Consumption? Occasional Information not available 08/21/2023 Are You Blind Or Do You Have Difficulty Seeing? No Information n ot available 07/24/2022 What Is Your Level Of Caffeine Consumption? Occasional Information not available 08/21/2023 How Much Tobacco Do You Chew? None Information not available 08/21/2023 In The 14 Days Before Symptom Onset, Have You Had Close Contact With A Laboratory-confirm ed COVID-19 While That Case Was Ill? No Information n ot available 04/10/2023 In The 14 Days Before Symptom Onset, Have You Had Close Contact With A Person Who Is Under Investigation For COVID-19 While That Person Was Ill? No Information not available 04/10/2023 Have You Been To An Area Known To Be High Risk For COVID-19? No Information not available 04/10/2023 Are You Deaf Or Do You Have Serious Difficulty Hearing? No Information not available 07/24/2022 What Type Of Diet Are You Following? REGULAR Information n ot available 08/21/2023 What Is The Highest Grade Or Level Of School You Have Completed Or The Highest Degree You Have Received? [id number] Information not available 08/21/2023 Are There Any Guns Present In Your Home? Yes Information not available 08/21/2023 Do You Use Protection During Sex? Usually Information not available 08/21/2023 Do You Use Your Seat Belt Or Car Seat Routinely? Yes Information not available 08/21/2023 Do You Have Smoke And Carbon Monoxide Detectors In Your Home? Yes Information not available 08/21/2023 How Much Tobacco Do You Smoke? No Information not available 08/21/2023 Do You Feel Stressed (tense, Restless, Nervous, Or Anxious, Or Unable To Sleep At Night)? [id number] Information not available 08/21/2023 Do You Use Any Illicit Or Recreational Drugs? No Information not available 08/21/2023 Do You Use Sunscreen Routinely? Yes Information not available 08/21/2023 Have You Used IV Drugs? No Information not available 08/21/2023 Sex: Unknown Functional Status Question Answer Note LastModified by Organizat ion Details LastModified Time Do you have difficulty walking or climbing stairs? No Information not available 09/10/2022 Are you able to walk? YESWOREST Information not available 07/24/2022 Are you able to care for yourself? Yes Information not available 09/10/2022 Do you have difficulty dressing or bathing? No Information not available 09/10/2022 What is your exercise level? Occasional Information not available 08/21/2023 Mental Status None recorded. Family History Relationship Description Onset Age of this Age Resolved Age Notes LastModified by Organization Details LastModified Time Paternal Grandmother Malignant tumor of breast [email or web address] Not available 2021 14:48:57 Mother Diabetes mellitus [email or web address] Not available 2021 14:49:06 Mother Hypertensive disorder [email or web address] Not available 2021 14:49:15 Medical History Condition Response Anemia Y Gynecological History Statement/Question Response Abnormal Pap N Flow Moderate Date of Last Mammogram Date of LMP 03/24/2024 N On BCP's at Conception? N STIs/STDs Y Was last menstrual period normal Y HPV Vaccine N Duration of Flow (days) 3 Current Control Method None Age at First Child 12 Are cycles usually normal Y Date of Last Colonoscopy Sexually Active? Y Menses Monthly Y Date of DEXA bone scan Age of first menstrual cycle 10 Date of Last Pap Smear 04/11/2023 Sexual Problems? N LMP Definite N Obstetrics History GPAL:G 7 P 3 0 4 3 Type Value Full Term 3 Induced 2 Spontaneous 2 Living 3 Total 7 Past Encounters Encounter ID Performer Location Encounter Start Date Encounter Closed Date Diagnosis/Indication Diagnosis SNOMED-CT Code Diagnosis ICD10 Code Diagnosis Note [id number] Alcon Gaxiola MD [facility] [address],[facility] [[email or web address] [place] [address] 04/05/2022 13:59:06 04/05/2022 15:01:35 Gynecologic examination 80008654 Z01.419 Annual gynecologi celena exam performed. Patient will come back in a year unless there are new symptoms. Suggest Calcium with Vitamin D if not eating in diet. Patient advised to get annual flu shot. Recommend yearly physicals and preform monthly breast exams. Genetic testing is available for patients with family history of cancer. Engage in safe sexual practices, use condoms. Encouraged to have daily exercise. Avoid tobacco and illicit drugs, moderation of alcohol. If BMI greater than 25 dietary consult advised. If you have any questions please call or email. Mammogram - ordered Cholestero l - labs Pap - today [id number] Bing Shultz [facility] [address] [address] 04/26/2022 13:52:06 04/26/2022 16:45:57 Contraception care management 385724840 Z30.9 [id number] BELL Nobles [facility] [address],[facility] [[email or web address] [place] [address] 07/24/2022 11:02:19 07/24/2022 15:06:03 Vaginitis 98761866 N76.0 suspect BV/yeast on examvagini tis panel sentSTI endocervic al testing sentblood STI testing declinedvu lvar care guidelines discussedR x sent, R/B/A discussed Contracept ion care management 708875213 Z30.9 Spotting for 2 months after starting depo, no current bleeding x 1 month. We discussed common/nor mal to have irregular periods/sp otting in the first 2-3 months of starting a new BC method. We discussed all BC options. She is considerin g permanent sterlizati on. Declines other BC methods at this time. She can schedule MD consult if she decides to pursue permanent sterlizati on, or notify us if she would like a different BC method. Condom use encouraged Time spent in visit is a total of 25 mins with at least 50% of visit consisting of counseling and review of plan of care. [id number] Holli Cordero [facility] [address],[facility] [[email or web address]] [place] [address] 09/10/2022 11:48:12 09/10/2022 12:26:19 Vaginitis 59297623 N76.0 BROWN sent for (+) trichomona svaginitis panel sentvulvar care guidelines discussed, d/c use of fragrance soaps/prod uctscondom use encouraged rx sent, R/B/A discussedw ill update patient with results when available Time spent in visit is a total of 22 mins with at least 50% of visit consisting of counseling and review of plan of care. Infection by Trichomonas 16398708 A59.9 Venereal d isease screening 580373260 Z11.3 [id number] [facility] [address],[facility] [[email or web address] [place] [address] 04/10/2023 16:55:13 04/10/2023 17:36:19 Gynecologic examination 73445576 Z01.419 Take Calcium with Vitamin D 1200mg daily if not receiving in daily diet. It is strongly advised to have an annual flu shot and up can obtain at most pharmacies . If you have not had a TDap shot in the last 10 years you should obtain one as well. Discussed with patient & provided with informatio n regarding Gardisil vaccine to prevent the 4 strains for HPV that cause cervical cancer if under age 26. Encourage safe sexual practices, to use condoms and limit partners if not already in a monogamous relationsh ip. Do monthly self breast exams. Have mammogram yearly or every other year depending on family history. BRCA testing is now available for patients with strong genetic history of female cancer. If interested contact the office. Engage in daily exercise of low impact aerobic exercise 45-60 minutes 4-5 times weekly. Avoid tobacco and illicit drugs as well as using moderation with alcohol intake less than 1-2 8 oz beverages daily. This lifestyle behavior pattern will lead to less health conditions and longer life span. If BMI greater than 25 weight watchers or dietary consult advised. Patient received above instructio ns, and questions have been answered. If you have any questions please call or respond to this email. Patient was made aware of the patient portal and may obtain a paper copy of today's plan if desired.Pa p/hpv sent STD Screen sent Genetic Screen discussed Colon Screen na Dexa Screen na Routine Labs PCP Screening mammography 24 [id number] Z12.31 [id number] [facility] [address],[place] [address] 08/21/2023 09:15:59 08/21/2023 10:30:11 Vaginitis 14600586 N76.0 Suspect yeast/BV on exam todayWante d std screen sentWill reach out with resultsRev iewed vulvar care guideline recommenda tions Counseled on medication R/B's, Most common side effects, & use. All questions were answered to patient satisfacti on. Health Hx was reviewed and updated as reported in chart. Time spent in visit is a total of 22 mins with at least 50% of visit consisting of counseling and review of plan of care. [id number] Christin Colvin [facility] [address],[place] [address] 12/11/2023 17:02:42 12/11/2023 17:18:57 Vaginal irritation 935278835 N89.8 [id number] SAMI PINEDA NP [facility] [address],[place] [address] 04/20/2024 16:37:51 04/20/2024 17:40:11 Gynecologic examination 24915815 Z01.419 Annual gynecologi celena exam performed. Patient will come back in a year unless there are new symptoms. Suggest Calcium with Vitamin D if not eating in diet. Patient advised to get annual flu shot. Recommend yearly physicals and perform monthly breast exams. Genetic testing is available for patients with family history of cancer. Engage in safe sexual practices, use condoms. Encouraged to have daily exercise. Avoid tobacco and illicit drugs, moderation of alcohol. If BMI greater than 25 dietary consult advised. If you have any questions please call or email. mammogram- order given, pt to schedule Pap smear- UTD (2022- WNL), will repeat in 2025 per ASCCP guidelines laboratory evaluation - PCP STI testing - requested Recommende d Lazaro jose to track cycles/ovu lation. Discussed the fertile time of the cycle and options for tracking ovulation, including ovulation predictor kits and basal body temperatur e. Discussed timed intercours e every other day starting on Day 6 of period through to the next period. Instructed patient to take PNV daily. Recommende d semen analysis for partner as well, especially if unable to conceive within 6 months of tracking cycles. Discussed maternal and risks of pregnancie s of advanced maternal age (> age 35 y/o). Patient to call office with any questions or concerns, or if unable to conceive after 6 months as additional testing/la b work and/or infertilit y specialist referral is recommende d. Screening mammography 24 [id number] Z12.31 Vaginal discharge 136171 006 N89.8 Discussed empirical treatment with metronidaz ole and fluconazol e for suspected BV and yeast based on reported symptoms and physical exam findings.D iscussed vulvar care guidelines in addition to laundry/sk in irritants to avoid.Gael mmended boric acid capsules - insert one capsule vaginally at H.S. after period, intercours e, and/or with symptoms. Venereal d isease screening [id number] Z11.3 Pt requested STI testing for GC/CT/tric h.Discusse d the various types of STDs, related symptoms and the potential consequenc es (including effects on fertility) of STD infections . Reviewed ways to limit exposure and prevention techniques . Health Concerns Section Related Observation LastModified by Organization Detai ls LastModified Time None Recorded Concern Status LastModified by Organization Details LastModified Time None Recorded Advance Directives Directive N: Payers Encounter Date Sequence Insurance Name Policy Number Policy Ruiz Covered Member ID Ruiz Member ID Guarantor Name 09/10/2022 1 [employer] (O) [id number] Merrya Green [id number] Letaisha Green 04/10/2023 1 [employer] (PPO) [id number] Letaisha Green [id number] 1 [id number] Letaisha Green 08/21/2023 1 [facility] [id number] Sumit Green [id number] 1 [id number] Sumit Green 12/11/2023 1 [facility] [id number] Letdanie Green [id number] Trevorsha Green 04/20/2024 1 [facility] [id number] Sumit Green [id number] 1 [id number] Sumit Guadarrama Notes Date Note Type Note Provider Name and Address Organization Details Recorded Time 09/10/2022 text/html 37yopresents for BROWN(+) trichomonas 07/24/22. Completed treatment, no longer with partnersymptoms resolved after treatmentused a new scented roni soap last week and now has been having vaginal itchingneg odorsneg d/cneg pelvic painDepo for BC BELL Nobles [address], [place], [address], [facility] 09/10/2022 12:17:38 04/10/2023 text/html Annual GYNReport ed bypatient.History:no gynecologic complaints Menstrual cycle:Normal menses Urinary symptoms:No hematuria; No incontinence Vulva:No genital lesion Vagina:Normal vaginal discharge Breast:No breast pain; No breast lump; No nipple discharge Current Contraception: control not practiced Sexual complaints:No sexual complaints; No pain during intercourse; Normal libido Menopausal Symptoms:No menopausal symptoms; Normal vaginal lubrication Psychological symptoms:No depression; No anxiety; No PMDD Preventive measures:Encourage self breast examination; Encourage regular exercise; Encourage no tobacco use; Encourage regular mammograms starting age 40; Followed with yearly pap smears; Needs to schedule mammogram BELL Gonzalez-BC [address], [place], [address], [facility] 04/10/2023 17:35:30 08/21/2023 text/html Vaginal/Vulvar ProblemReported bypatient.Location:v agina Onset/Timing:occurs after menses; abrupt Duration:present for 1-7 days Quality:itching; irritation (+odor/minimal d/c) Severity:mild Context:sexually active Alleviating Factors:none Aggravating Factors:none Associated Symptoms:no vaginal pain; no vulvar itching/irritation; no vulvar swelling/erythema; no vulvar pain; no vulvar lesions; no pelvic pain; no dyspareunia; no dysuria; no fever; no abdominal pain;vaginal itching;vaginal irritation; +vag odor BELL Gonzalez- [address], [place], [address], [facility] 08/21/2023 10:12:47 04/20/2024 text/html Annual GYNReport ed bypatient.Menstrual cycle:Normal menses Urinary symptoms:No hematuria; No incontinence Vulva:No genital lesion Vagina:Normal vaginal discharge Breast:No breast pain; No breast lump; No nipple discharge Sexual complaints:No sexual complaints; No pain during intercourse; Normal libido Menopausal Symptoms:No menopausal symptoms; Normal vaginal lubrication Psychological symptoms:No depression; No anxiety; No PMDD Preventive measures:Encourage self breast examination; Encourage regular exercise; Encourage no tobacco use; Encourage regular mammograms starting age 40 Patient presents for annual well woman exam. Patient c/o fishy vaginal odor and discharge after changing soaps to Dial soap. Requests STI testing. Patient also states that she has not been using condoms during intercourse for the past few months, and has not gotten . Patient states that she is trying to conceive with her boyfriend. Patient's cycles are q28 days, last 3 days with moderate flow. Patient is a . Patient's partner has never had children. SAMI PINEDA NP [address], [place], [address], [facility] 04/20/2024 17:34:46 OBGyn Episode Ob Episode Information Episode Created Date Number of Fetuses Patient Bloodtype Patient rh Status Prepregnancy Weight lbs Domestic Partner Domestic Partner Phone Father Name Automotive Refinisher Status 04/05/20 22 1 CLOSED Fetus Data First Name Last Name Admitted to NICU Weight (g) Sex Living Outcome Pediatric Complications Fetus ID Race Codes Race Delivery Type F Full Term [id number] Vaginal Delivery Pieter Calculation Initial Pieter Date Initial Exam Date Initial Exam Provider Initial Ultrasound Date Last Menstrual Period Date Ultra Sound Weeks Gestation 0 Eighteen To Twenty Week Pieter Update Ultra Sound Date Fundal Height At Umbil Quickening Date Ultra Sound Latest Weeks Gestation Final Pieter Confirmed By Final Pieter Confirmed Date Final Pieter Date Ultra Sound Latest Days Gestation 0 0 Menstrual History Last Menstrual Date Menses Monthly On Bcp Conception Prior Menses Frequency Hcg Plus Date Menarche Onset Age Delivery Information Delivery Date Delivery Type Labor Anesthesia Weeks Gestation Incision Type Labor Labor Length Hrs Delivered By Post Complications Tubal Sterilization Discharge Date Comments 9 Discharge Information Feeding Method Contraceptive Method Maternal HG B and HCT Levels Ob Episode Information Episode Created Date Number of Fetuses Patient Bloodtype Patient rh Status Prepregnancy Weight lbs Domestic Partner Domestic Partner Phone Father Name Automotive Refinisher Status 04/05/20 22 1 CLOSED Fetus Data First Name Last Name Admitted to NICU Weight (g) Sex Living Outcome Pediatric Complications Fetus ID Race Codes Race Delivery Type M Prematur e [id number] Vaginal Delivery Pieter Calculation Initial Pieter Date Initial Exam Date Initial Exam Provider Initial Ultrasound Date Last Menstrual Period Date Ultra Sound Weeks Gestation 0 Eighteen To Twenty Week Pieter Update Ultra Sound Date Fundal Height At Umbil Quickening Date Ultra Sound Latest Weeks Gestation Final Pieter Confirmed By Final Pieter Confirmed Date Final Pieter Date Ultra Sound Latest Days Gestation 0 0 Menstrual History Last Menstrual Date Menses Monthly On Bcp Conception Prior Menses Frequency Hcg Plus Date Menarche Onset Age Delivery Information Delivery Date Delivery Type Labor Anesthesia Weeks Gestation Incision Type Labor Labor Length Hrs Delivered By Post Complications Tubal Sterilization Discharge Date Comments 6 Discharge Information Feeding Method Contraceptive Method Maternal HG B and HCT Levels Ob Episode Information Episode Created Date Number of Fetuses Patient Bloodtype Patient rh Status Prepregnancy Weight lbs Domestic Partner Domestic Partner Phone Father Name Automotive Refinisher Status 04/05/20 22 1 CLOSED Fetus Data First Name Last Name Admitted to NICU Weight (g) Sex Living Outcome Pediatric Complications Fetus ID Race Codes Race Delivery Type M Full Term [id number] Vaginal Delivery Pieter Calculation Initial Pieter Date Initial Exam Date Initial Exam Provider Initial Ultrasound Date Last Menstrual Period Date Ultra Sound Weeks Gestation 0 Eighteen To Twenty Week Pieter Update Ultra Sound Date Fundal Height At Umbil Quickening Date Ultra Sound Latest Weeks Gestation Final Pieter Confirmed By Final Pieter Confirmed Date Final Pieter Date Ultra Sound Latest Days Gestation 0 0 Menstrual History Last Menstrual Date Menses Monthly On Bcp Conception Prior Menses Frequency Hcg Plus Date Menarche Onset Age Delivery Information Delivery Date Delivery Type Labor Anesthesia Weeks Gestation Incision Type Labor Labor Length Hrs Delivered By Post Complications Tubal Sterilization Discharge Date Comments 4 Discharge Information Feeding Method Contraceptive Method Maternal HG B and HCT Levels Ob Episode Information Episode Created Date Number of Fetuses Patient Bloodtype Patient rh Status Prepregnancy Weight lbs Domestic Partner Domestic Partner Phone Father Name Automotive Refinisher Status 04/05/20 22 1 CLOSED Fetus Data First Name Last Name Admitted to NICU Weight (g) Sex Living Outcome Pediatric Complications Fetus ID Race Codes Race Delivery Type , Spontane ous [id number] Pieter Calculation Initial Pieter Date Initial Exam Date Initial Exam Provider Initial Ultrasound Date Last Menstrual Period Date Ultra Sound Weeks Gestation 0 Eighteen To Twenty Week Pieter Update Ultra Sound Date Fundal Height At Umbil Quickening Date Ultra Sound Latest Weeks Gestation Final Pieter Confirmed By Final Pieter Confirmed Date Final Pieter Date Ultra Sound Latest Days Gestation 0 0 Menstrual History Last Menstrual Date Menses Monthly On Bcp Conception Prior Menses Frequency Hcg Plus Date Menarche Onset Age Delivery Information Delivery Date Delivery Type Labor Anesthesia Weeks Gestation Incision Type Labor Labor Length Hrs Delivered By Post Complications Tubal Sterilization Discharge Date Comments 2 Discharge Information Feeding Method Contraceptive Method Maternal HG B and HCT Levels Ob Episode Information Episode Created Date Number of Fetuses Patient Bloodtype Patient rh Status Prepregnancy Weight lbs Domestic Partner Domestic Partner Phone Father Name Automotive Refinisher Status 04/05/20 22 1 CLOSED Fetus Data First Name Last Name Admitted to NICU Weight (g) Sex Living Outcome Pediatric Complications Fetus ID Race Codes Race Delivery Type , Spontane ous [id number] Pieter Calculation Initial Pieter Date Initial Exam Date Initial Exam Provider Initial Ultrasound Date Last Menstrual Period Date Ultra Sound Weeks Gestation 0 Eighteen To Twenty Week Pieter Update Ultra Sound Date Fundal Height At Umbil Quickening Date Ultra Sound Latest Weeks Gestation Final Pieter Confirmed By Final Pieter Confirmed Date Final Pieter Date Ultra Sound Latest Days Gestation 0 0 Menstrual History Last Menstrual Date Menses Monthly On Bcp Conception Prior Menses Frequency Hcg Plus Date Menarche Onset Age Delivery Information Delivery Date Delivery Type Labor Anesthesia Weeks Gestation Incision Type Labor Labor Length Hrs Delivered By Post Complications Tubal Sterilization Discharge Date Comments 2 Discharge Information Feeding Method Contraceptive Method Maternal HG B and HCT Levels
== END 2024-07-14 08:52 | disposition home or self-care (01) ==
LOC: ANHIMG 08:55
PROVIDERS: PCP Student in an Organized Health Care Education/Training Program; Visit Provider Student in an Organized Health Care Education/Training Program
DX: Z12.31 Encounter for screening mammogram for malignant neoplasm of breast (principal); R92.8 Other abnormal and inconclusive findings on diagnostic imaging of breast
CPT/HCPCS: 77063; 77067

== ENCOUNTER 2024-07-21 13:27 | Outpatient (CLI) | payer OTHER, SELFPAY ==
--- NOTE | ~2024-07-21 | MMUS_ITS ---
EXAMINATION: MM diagnostic sanju RT w foreign, US breast RT limited HISTORY: Follow-up right breast asymmetry TECHNIQUE: Additional 3-D tomosynthesis images of the right breast were performed and synthetic 2-D i mages were generated. CAD analysis was submitted and interpreted. High resolution Limited right breas t ultrasound was performed. COMPARISON: 07/14/2024 BREAST PARENCHYMAL COMPOSITION: Dense: The breasts are heterogeneously dense, which may obscure small masses FINDINGS: MAMMOGRAPHIC FINDINGS: There is a radiolucent mass in the upper outer quadrant of the right breast, consistent with intramam christian lymph node. There are no suspicious calcifications or areas of architectural distortion with spo t compression or mediolateral views. ULTRASOUND: Limited right breast ultrasound: At 7:00, 3 cm from the nipple there is 3 mm cyst. At 10:00, 8 cm fro m the nipple there is a 6 mm cyst. At 10:00, 4 cm from the nipple there is an intramammary lymph node measuring 7 mm. At 11:00, 7 cm from the nipple there is a 7 mm cyst. No suspicious masses to suggest malignancy. IMPRESSION: 1. No evidence for malignancy in the right breast. Benign findings. 2. Routine yearly screening mammogram and regular clinical breast examination are recommended. BI-RADS Category 2: Benign finding(s). Reviewed, dictated and finalized at location A. IMPRESSION: 1. No evidence for malignancy in the right breast. Benign findings. 2. Routine yearly screening mammogram and regular clinical breast examination a re recommended. BI-RADS Category 2: Benign finding(s).
--- OUTSIDE RECORDS SUMMARY | 2024-07-21 14:35 | XMS_ITS | Clinical Summary ---
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
--- OUTSIDE RECORDS SUMMARY | 2024-07-21 14:35 | XMS_ITS | Encounter Summary ---
Author Organization [facility] Address [address] [place] [address] Care Team Providers Care Bioprocess Engineer Name Role Phone Unavailable Primary Care Provider Unavailabl e Prior Encounters Date Type Department Care Team Description 02/14/2022 10:00 AM CDT Office Visit [facility] [address] [place] [address] Adela Cook DDS Last Filed [...] CDT Visit Diagnoses Not on file Insurance [facility]
--- OUTSIDE RECORDS SUMMARY | 2024-07-21 14:35 | XMS_ITS | Clinical Summary ---
Author Organization [facility] Address [address] [place] [address] Care Team Providers Care Mysql Dba Name Role Phone Unavailable Primary Care Provider [...]
--- OUTSIDE RECORDS SUMMARY | 2024-07-21 14:35 | XMS_ITS | Referral Summary ---
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 Gender Identity Not on file Sexual Orientation [...] Plan of Treatment Not on file Insurance Member Subscriber Plan / Payer (Ef fective 2018-Present) Name:Sumit Guadarrama Relation to Subscriber:Self Name:Sumit Guadarrama Payer ID:[id number] Type:[employer] HMO/PPO Address: [id number] [place] [address] Member Subscriber Plan / Payer ( fective 2018-Present) Name:Sumit Guadarrama Relation to Subscriber:Self Name:Sumit Guadarrama Payer ID:[id number] Type:[employer] HMO/PPO Address: [id number] [place] [address] Care Teams Nurse General Duty Relationship Specialty Start Date End Date No, Physician PCP - General 03/19/22
--- OUTSIDE RECORDS SUMMARY | 2024-07-21 14:35 | XMS_ITS | Data Portability ---
Author Organization [facility]EL [facility] Address [address] [place] [address] Assessment Encounter Date Assessment Date Assessment LastModified [...] Lab CBC w/ auto diff 2022 023 [facility], [address] [place] [address], [address], [place], [address], 3 15:11:38 lipid panel, serum 2022 023 [facility], [address] [place] [address], [address], [place], [address], 3 15:11:39 CMP, serum or plasma 2022 023 [facility], [address] [place] [address], [address], [place], [address], 3 15:11:38 HbA1c (hemoglobi n A1c), blood 2022 023 [facility], [address] [facility], [address], [place], [address], 3 15:11:38 TSH, ultra-sens itive, serum 2022 023 [facility] [facility], [address] [facility], [address], [place], [address], 3 15:11:38 vitamin D, 25-hydroxy , total, serum 2022 023 [facility] [facility], [address] [facility], [address], [place], [address], 3 15:11:37 CT + NG + TV, DNA, urine/swab 2017 018 [facility] (Lab), [address], [place], [address], 8 23:06:54 CBC w/ diff [email or web address] [place] [address] (Lab), [address], [place], [address], 3 15:07:55 CT + NG + TV, DNA, urine/swab 2016 017 [facility] (Lab), [address], [place], [address], 7 21:14:17 RPR (rapid plasma reagin), serum 2016 017 [facility] (Lab), [address], [place], [address], 7 07:17:40 HIV (1+2) Ab screen, serum 2016 017 [facility] (Lab), [address], [place], [address], 7 09:22:01 wet mount, vaginal 2016 017 [email or web address] In-Office Order, Internal Use Only DO Not Attach Compendium DO Not Attach Compendium, Do Not Delete/merge, [id number] 7 16:14:06 wet mount, vaginal 2016 017 [email or web address] 3 In-Office Order, Internal Use Only DO Not Attach Compendium DO Not Attach Compendium, Do Not Delete/merge, [id number] 7 12:29:18 wet mount, vaginal 2016 017 [facility] In-Office Order, Internal Use Only DO Not Attach Compendium DO Not Attach Compendium, Do Not Delete/merge, [id number] 7 11:58:37 CT + NG DNA, PCR, unspecifie d specimen 2016 017 [email or web address] [facility], [address] [facility], [facility] [address], [place], [address], 7 10:25:45 wet mount, vaginal 2015 016 [id number]_ [id number] In-Office Order, Internal Use Only DO Not Attach Compendium DO Not Attach Compendium, Do Not Delete/merge, [id number] 6 04:33:05 CT + NG DNA, PCR, unspecifie d specimen 2015 016 [email or web address] [facility], [address] [facility], [facility] [address], [place], [address], 6 10:17:07 Referral None recorded. Procedures excision, skin tag (PROC) 2016 017 Not available 3 15:07:55 Surgeries None recorded. Imaging None recorded. Medication Orders fluticason e propionate 50 mcg/actuat ion nasal spray,susp ension 2022 023 [id number] [facility], [address], [place], [address], 3 15:11:33 Diflucan 150 mg tablet 2017 [...] Flagyl 500 mg tablet 2015 016 DBA_[id number]_ [id number] Not available 6 04:33:15 Patient Targets Encounter Date Encounter Id Patient Goals Patient Target Last Modified By Organization Details Last Modified Time To avoid unplanned Not available 06/21/2017 15:05:35 Patient Instructions Encounter Date Encounter Id Patient Instructions Last Modified By Organization Details Last Modified Time 03/28/2016 [id number] bacterial vaginosis: care instructions [email or web address] Not available 03/28/2016 16:53:49 05/24/2016 [id number] skin tag removal : care instructions Not available 05/24/2016 13:01:22 R&B of skin tag removal discussed pt. accepts Suture tied around skin tag. Info on skin tag removal given Not available 05/24/2016 12:29:16 10/02/2016 [id number] bacterial vaginosis: care instructions Not available 10/02/2016 16:17:59 pt. wants nexplanon again. pt. told I will be leaving end of September. Not available 10/02/2016 16:13:59 06/21/2017 [id number] Pt. instructed t o RTC if needs for protection arise Not available 06/21/2017 15:05:57 01/17/2023 [id number] allergies: care instructions Not available 01/17/2023 15:11:29 [...] DO Not Attach Compendium, Do Not Delete/merge, [id number] 10/02/2016 16:11:02 10/03/19 17 10/02/2016 dimas rawls Trichomonas negati ve Not Available In-Office Order Internal Use Only DO Not Attach Compendium DO Not Attach Compendium, Do Not Delete/merge, [id number] 10/02/2016 16:11:02 05/24/19 17 05/24/2016 dimas rawls Clue Cells negati ve Not Available In-Office Order Internal Use Only DO Not Attach Compendium DO Not Attach Compendium, Do Not Delete/merge, [id number] 05/24/2016 12:14:42 05/24/19 17 05/24/2016 dimas rawls Trichomonas negati ve Not Available In-Office Order Internal Use Only DO Not Attach Compendium DO Not Attach Compendium, Do Not Delete/merge, [id number] 05/24/2016 12:14:42 03/28/20 16 03/28/2016 dimas rawls Clue Cells positi ve Not Available In-Office Order Internal Use Only DO Not Attach Compendium DO Not Attach Compendium, Do Not Delete/merge, [id number] 03/28/2016 15:33:11 03/28/20 16 03/28/2016 dimas rawls Trichomonas negati ve Not Available In-Office Order Internal Use Only DO Not Attach Compendium DO Not Attach Compendium, Do Not Delete/merge, [id number] 03/28/2016 15:33:11 02/23/20 16 02/23/2016 dimas rawls Clue Cells positi ve Not Available In-Office Order Internal Use Only DO Not Attach Compendium DO Not Attach Compendium, Do Not Delete/merge, [id number] 02/23/2016 15:29:05 02/23/20 16 02/23/2016 wet mount , vagin al Trichomonas negati ve Not Available In-Office Order Internal Use Only DO Not Attach Compendium DO Not Attach Compendium, Do Not Delete/merge, [id number] 02/23/2016 15:29:05 01/18/20 16 01/18/2016 urina lysis , dipst ick Leukocytes Negati ve Not Available In-Office Order Internal Use Only DO Not Attach Compendium DO Not Attach Compendium, Do Not Delete/merge, [id number] 01/18/2016 16:04:02 01/18/20 16 01/18/2016 urina lysis , dipst ick Nitrite negati ve Not Available In-Office Order Internal Use Only DO Not Attach Compendium DO Not Attach Compendium, Do Not Delete/merge, [id number] 01/18/2016 16:04:02 01/18/20 16 01/18/2016 urina lysis [...] 01/18/2016 urina lysis , dipst ick Specific [place] 1.030 Not Available In-Off ice Order Internal [...] ROBERT NEGATI VE negati ve Not Available [facility] (Lab) [address] [facility], [place], [address], 03/30/2016:19:07 03/28/20 16 03/30/2016 chlam ydiA/ Gonoc occus , ROBERT neisseria gonorrhoeae, ROBERT NEGATI VE negati ve Not Available [facility] (Lab) [address] [place], [address], 03/30/2016 09:19:07 05/24/19 17 2016 chlam ydia + gonor teo DNA panel , unspe cifie d speci men chlamydia trachomatis, ROBERT NEGATI VE negati ve Not Available [facility] (Lab) [address] [place], [address], 2016 09:10:27 05/24/19 17 2016 chlam ydia + gonor teo DNA panel , unspe cifie d speci men neisseria gonorrhoeae, ROBERT NEGATI VE negati ve Not Available [facility] (Lab) [address] [place], [address], 2016 09:10:27 10/03/19 17 10/03/2016 RPR (rapi d plasm a reagi n), serum RPR NON REACTI VE non reacti ve Not Available [facility] (Lab) [address] [facility], [place], [address], 10/03/2016 07:17:40 10/03/19 17 10/03/2016 HIV (1+2) Ab scree n, serum HIV 4TH generation NON REACTI VE non reacti ve Not Available [facility] (Lab) [address] [place], [address], 10/03/2016 09:22:01 10/03/19 17 10/03/2016 CT + NG + TV, DNA, urine /swab chlamydia by ROBERT NEGATI VE negati ve Not Available [facility] (Lab) [address] [place], [address], 10/03/2016 21:14:17 10/03/19 17 10/03/2016 CT + NG + TV, DNA, urine /swab gonococcus by ROBERT NEGATI VE negati ve Not Available [facility] ([facility]) [address] [place], [address], 10/03/2016 21:14:17 10/03/19 17 10/03/2016 CT + NG + TV, DNA, urine /swab trich vag by ROBERT NEGATI VE negati ve Not Available [facility] ([facility]) [address] [place], [address], 10/03/2016 21:14:17 06/22/19 18 06/21/2017 CBC w/ auto diff WBC 5.1 K/uL 3.4-10 .8 Not Available [facility] (Lab) [address] [place], [address], 06/21/2017 19:51:43 06/22/19 18 06/21/2017 CBC w/ auto diff red blood count 4.4 M/uL 4.2-5. 4 Not Available [facility] (Lab) [address] [facility], [place], [address], 06/21/2017 19:51:43 06/22/19 18 06/21/2017 CBC w/ auto diff hemoglobin 12.4 g/dL 11.5-1 5.5 Not Available [facility] (Lab) [address] [place], [address], 06/21/2017 19:51:43 06/22/19 18 06/21/2017 CBC w/ auto diff hematocrit 37.9 % 36.0-4 8.0 Not Available [facility] (Lab) [address] [place], [address], 06/21/2017 19:51:43 06/22/19 18 06/21/2017 CBC w/ auto diff MCV 87 fL 80-95 Not Available [facility] (Lab) [address] [place], [address], 06/21/2017 19:51:43 06/22/19 18 06/21/2017 CBC w/ auto diff MCH 28 pg 27-32 Not Available [facility] (Lab) [address] [place], [address], 06/21/2017 19:51:43 06/22/19 18 06/21/2017 CBC w/ auto diff MCHC 33 g/dL 32-36 Not Available [facility] (Lab) [address], [place], [address], 06/21/2017 19:51:43 06/22/19 18 06/21/2017 CBC w/ auto diff platelets 292 K/uL 155-37 9 Not Available [facility] (Lab) [address] [place], [address], 06/21/2017 19:51:43 06/22/19 18 06/21/2017 CBC w/ auto diff RDW 14.8 % 11.5-1 4.5 high Not Available [facility] (Lab) [address] [place], [address], 06/21/2017 19:51:43 06/22/19 18 06/21/2017 CBC w/ auto diff MPV 11.3 fL 8.9-12 .7 Not Available [facility] (Lab) [address] [place], [address], 06/21/2017 19:51:43 06/22/19 18 06/21/2017 CBC w/ auto diff neutrophils absolute 2.4 K/uL 1.4-7. 0 Not Available [facility] (Lab) [address] [place], [address], 06/21/2017 19:51:43 06/22/19 18 06/21/2017 CBC w/ auto diff lymphs (absolute) 2.1 K/uL 0.7-3. 1 Not Available [facility] (Lab) [address] [place], [address], 06/21/2017 19:51:43 06/22/19 18 06/21/2017 CBC w/ auto diff monocytes (absolute) 0.4 K/uL 0.1-0. 9 Not Available [facility] (Lab) [address] [place], [address], 06/21/2017 19:51:43 06/22/19 18 06/21/2017 CBC w/ auto diff eos (absolute) 0.2 K/uL 0.0-0. 4 Not Available [facility] (Lab) [address] [place], [address], 06/21/2017 19:51:43 06/22/19 18 06/21/2017 CBC w/ auto diff baso (absolute) 0.0 K/uL 0.1-0. 3 low Not Available [facility] (Lab) [address] [place], [address], 06/21/2017 19:51:43 06/22/19 18 06/21/2017 CBC w/ auto diff neut % 47.1 % 40.0-7 4.0 Not Available [facility] (Lab) [address] [place], [address], 06/21/2017 19:51:43 06/22/19 18 06/21/2017 CBC w/ auto diff lymphs % 41.0 % 14.0-4 6.0 Not Available [facility] (Lab) [address] [place], [address], 06/21/2017 19:51:43 06/22/19 18 06/21/2017 CBC w/ auto diff mono % 6.9 % 4.0-12 .0 Not Available [facility] (Lab) [address] [place], [address], 06/21/2017 19:51:43 06/22/19 18 06/21/2017 CBC w/ auto diff eos % 5 % <=5 Not Available [facility] (Lab) [address] [place], [address], 06/21/2017 19:51:43 06/22/19 18 06/21/2017 CBC w/ auto diff baso % 0.4 % 0.1-1. 1 Not Available [facility] (Lab) [address] [facility] [place], [address], 06/21/2017 19:51:43 06/22/19 18 06/24/2017 CT + NG + TV, DNA, urine /swab chlamydia by ROBERT NEGATI VE negati ve Not Available [facility] (Lab) [address] [facility], [place], [address], 06/24/2017 23:06:54 06/22/19 18 06/24/2017 CT + NG + TV, DNA, urine /swab gonococcus by ROBERT NEGATI VE negati ve Not Available [facility] (Lab) [address] [facility], [place], [address], 06/24/2017 23:06:54 06/22/19 18 06/24/2017 CT + NG + TV, DNA, urine /swab trich vag by ROBERT NEGATI VE negati ve Not Available [facility] (Lab) [address] [facility], [place], [address], 06/24/2017 23:06:54 11/03/19 17 11/02/2016 CT, abdom en + pelvi s, w/ contr ast No observ ation record ed. Not Available 2022 15:07:51 07/16/19 25 07/14/2024 MAMMO , scree abisai, bilat eral No observ ation record ed. [address], [place], [address], 07/15/2024 17:24:11 07/16/19 25 07/14/2024 MAMMO , scree abisai, bilat eral No observ ation record ed. [place] [id number] [facility] [address], [place], [address], 07/15/2024 09:08:06 Result Notes None recorded. Problems Name Problem SNOMED Code Status Onset Date Resolution Date Notes Provider Name and Address Organization Details Recorded Time Sexually transmitted infectious disease 5230696 Active SCOTT Perez, [place] - [facility] 6 15:10:17 Bacterial vaginosis 704244581 Active Terri Danielson MA null, [place] - [facility] 6 15:10:17 Abdominal pain 45111616 Active Kaveh Delacruz MD Attn: Maci swan,[address] [facility], [place], [address], [place] - [facility] 6 16:04:08 Cyst of ovary 20920444 Active Terri Danielson [place], [place] - [facility] 6 15:10:17 Infection by Trichomonas 84568993 Active Terri Danielson [place], [place] [facility] 6 15:10:17 Complaining of a rash Active Terri Danielson [place], [place] [facility] 6 15:10:17 Allergic rhinitis 16278080 Active Kaveh Delacruz MD Attn: Maci g,[address] [facility], [place], [address], [place] - [facility] 6 16:04:08 Problem Notes None recorded. Procedures Surgical History Date Name Laterality Status Provider Name and Address Organization Details Recorded Time 5 Control Implant Removal completed Don Oh MD Attn: Accounting,[address] [facility], [place], [address], [place] [facility] 08/16/2014 13:06:28 Imaging Results Imaging Date Name Status LastModified by [facility] Details LastModified Time 11/02/2016 CT, abdomen + pelvis, w/ contrast completed Information not available 01/17/2023 15:07:51 07/14/2024 MAMMO, screening, bilateral completed [address] [place] [address], [address], 07/15/2024 17:24:11 07/14/2024 MAMMO, screening, bilateral completed [address], [place], [address], 07/15/2024 09:08:06 Procedure Notes None recorded. Medical Equipment None [...] Updated DateTime 06/21/2017 160.02 cm 26 kg/m2 80988.08 g 112 mm[Hg] 70 mm[Hg] Karina Alatorre [facility] 8 14:48:25 Date Recorded Body height Body mass index (BMI) Body weight Oxygen saturation Oxygen saturation in Arterial blood by Pulse oximetry Pain severity - 0-10 verbal numeric rating [Score] - Reported Heart rate Respiratory rate Body temperature Systolic blood pressure Diastolic blood pressure Provider Name and Address Organization Details Last Updated DateTime 3 160.02 cm 30.7 kg/m2 76727.5 8 g 99 % 99 % 0 98 /min 18 /min 97.9 [degF] 122 mm[Hg] 85 mm[Hg] Fabricio Henley MA [facility] 3 14:40:42 Date Recorded Body height Body weight Body mass index (BMI) Systolic blood pressure Diastolic blood pressure Systolic blood pressure Diastolic blood pressure Provider Name and Address Organization Details Last Updated DateTime 6 160.02 cm 96608.5 5 g 27.6 kg/m2 100 mm[Hg] 68 mm[Hg] 102 mm[Hg] 40 mm[Hg] Mckay Renee MA [facility] 6 15:16:07 Date Recorded Body height Body weight Body mass index (BMI) Systolic blood pressure Diastolic blood pressure Provider Name and Address Organization Details Last Updated DateTime 05/24/2016 160.02 cm 26387.82 g 27.5 kg/m2 120 mm[Hg] 70 mm[Hg] Brenda Walker MA [facility] 7 11:47:27 Date Recorded Body height Body mass index (BMI) Body weight Systolic blood pressure Diastolic blood pressure Provider Name and Address Organization Details Last Updated DateTime 10/02/2016 160.02 cm 25.7 kg/m2 95616.32 g 110 mm[Hg] 70 mm[Hg] Brenda Walker MA [facility] 7 15:46:36 Social History Question Answer Notes LastModified by Organizat ion Details LastModified Time Tobacco Smoking Status Current Every Day Smoker marijuana Fabricio Henley MA [facility], [place] - [facility] 01/17/2023 14:41:54 What Is Your Level Of Alcohol Consumption? Occasional [id number] Information not available 02/23/2020 What Is Your Level Of Caffeine Consumption? Heavy [id number] Information not available 02/23/2020 How Much Tobacco Do You Chew? None [id number] Information not available 02/23/2020 What Type Of Diet Are You Following? REGULAR [id number] Information not available 02/23/2020 Which Illicit Or Recreational Drugs Have You Used? None [id number] Information not available 02/23/2020 What Is Your Occupation? [employer] [id number] Information not available 02/23/2020 Are There Any Guns Present In Your Home? No [id number] Information not available 02/23/2020 Hard Of Hearing Or Deaf In One Or Both Ears? No Information not available 01/18/2016 Legally Blind In One Or Both Eyes? No Information not available 01/18/2016 Marital Status Single [facility] Informatio n not available 01/18/2016 What Was The Date Of Your Most Recent Tobacco Screening? 01/17/2023 Information not available 01/17/2023 Performs Monthly Self-breast Exam? No Information not available 01/18/2016 Seat Belts Used Routinely Yes Information not available 01/18/2016 Smoke Alarm In Home Yes Information not available 01/18/2016 General Stress Level Low Information not available 01/18/2016 Do You Use Sunscreen Routinely? Yes [id number] Information not available 02/23/2020 Has Tobacco Cessation Counseling Been Provided? Yes Information not available 01/17/2023 On What Date Was Tobacco Cessation Counseling Provided? 01/17/2023 Information not available 01/17/2023 Sex: Unknown Functional Status Question Answer Note LastModified by Organization D etails LastModified Time What is your exercise level? None [id number] Information not available 02/23/2020 Mental Status None recorded. Family History Relationship Description Onset Age of this Age Resolved Age Notes LastModified by Organization Details LastModified Time Mother No current problems or disability [facility] Not available 01/17 15:10:17 Father Relative killed 20 hung in long-term [facility] Not available 01/18/2016 15:10:17 Medical History Condition [...] SNOMED-CT Code Diagnosis ICD10 Code Diagnosis Note [id number] [facility] [address] [place] [address] 08/02/2014 10:46:31 08/02/2014 11:43:57 Gynecologic examination 64920783 Sexually t ransmitted infectious disease 0414475 [id number] Jeannine Mcqueen [facility] ([employer]) [address] [place] [address] 08/16/2014 11:04:22 08/16/2014 13:10:25 Uses contraception 55835509 [id number] Brenda Walker MA [facility] ([employer] OPERATOR) [address] [place] [address] 12/06/2014 11:06:51 12/06/2014 17:41:11 Bacterial vaginosis 369364878 [id number] [facility] ([employer]PER[employer]) [address] [place] [address] 12/31/2014 12:18:28 12/31/2014 14:40:42 Bacterial vaginosis 846557633 [id number] Don Oh MD [facility] ([employer]) [address] [place] [address] 05/02/2015 12:41:50 05/15/2015 03:48:51 Abdominal pain 30229396 R10.9 Cyst of ovary 42418705 N 83.20 Contraception care 82950 5005 Z30.40 [id number] Don Oh MD [facility] ([employer]) [address] [place] [address] 08/15/2015 09:41:27 08/15/2015 14:46:06 Gynecologic examination 74386578 Z01.419 Infection by Trichomonas 95341177 A59.9 [id number] Don Oh MD [facility] ([employer] OPERATOR) [address] [place] [address] 09/28/2015 16:08:54 09/28/2015 17:03:14 Complaining of a rash 338865677 R21 Contraception care 23402 5005 Z30.40 [id number] Kaveh Delacruz MD [address] [address] 01/18/2016 14:57:03 01/20/2016 09:40:47 Allergic rhinitis 56221702 J30.9 once daily and follow up... Abdominal pain 64609900 R10.9 u/s and try zantac... follow up... [id number] Don Oh MD [facility] ([employer]PER[employer]) [address] [place] [address] 02/23/2016 14:07:32 02/23/2016 17:02:42 Bacterial vaginosis 652363287 N76.0 Urinary tr act infectious disease 05026068 N39.0 [id number] Don Oh MD [facility] ([employer]PERATOR) [address] [place] [address] 03/28/2016 14:56:42 03/28/2016 16:18:23 Bacterial vaginosis 826213239 N76.0 [id number] Don Oh MD [facility] ([employer]PER[employer]) [address] [place] [address] 05/24/2016 11:21:13 05/24/2016 13:53:27 Vaginitis and vulvovaginitis 565945066 N76.0 Skin tag 906877129 L91.8 [id number] Don Oh MD [facility] ([employer]PERATOR) [address] [place] [address] 10/02/2016 15:31:04 10/02/2016 17:13:48 Gynecologic examination 66874387 Z01.419 Bacterial vaginosis 4197 08438 N76.0 [id number] Alana Weiner [facility] ([employer]PER[employer]) [address] [place] [address] 06/21/2017 14:36:40 06/21/2017 15:17:57 Elective termination of 22318025 Z33.2 Vaginitis 31985936 N76.0 [id number] Kaveh Delacruz MD [address] [address] 01/17/2023 14:21:24 01/21/2023 14:41:40 Obesity 946542130 E66.9 bmi=30.7.. . 1 months... Allergic rhinitis 880434 04 J30.9 once daily and follow up... Health Concerns Section Related Observation LastModified by Organization Detai ls LastModified Time None Recorded Concern Status LastModified by Organization Details LastModified Time None Recorded Advance Directives Directive None Recorded Payers Encounter Date Sequence Insurance Name Policy Number Policy Ruiz Covered Member ID Ruiz Member ID Guarantor Name 03/28/2016 1 [facility] (MEDICAID HMO) [id number] Letconradsha Green [id number] Letaisha Green 05/24/2016 1 [facility] (MEDICAID HMO) [id number] Letaisha Green [id number] Letaisha Green 10/02/2016 1 [facility] (MEDICAID HMO) [id number] Letaisha Green [id number] Letaisha Green 06/21/2017 1 [facility] (MEDICAID HMO) [id number] Letaisha Green [id number] Letaisha Green 01/17/2023 1 [facility] [id number] Letaisha Green [id number] Letaisha Green Notes Date Note Type Note Provider Name and Address Organization Details Recorded Time 03/28/2016 text/html 30 yr. old aaf c /o vaginal discharge for one week LMP uses no control Don Oh MD Attn: Accounting,[address] [place], [address], [facility] 03/28/2016 15:35:19 05/24/2016 text/html 30 yr. aaf c/o vaginal discharge for one week. LMP 04/28/16 uses no control. Pt. also c/o skin tag on her neck she wants it removed. Don Oh MD Attn: Accounting,[address] [place], [address], [facility] 05/24/2016 12:30:06 10/02/2016 text/html 31 yr. old aaf here for annual LMP 09/20/16 would like nexplanon for control. No other problems. ? vaginal discharge Don Oh MD Attn: Accounting,[address] [place], [address], [facility] 10/02/2016 16:15:03 06/21/2017 text/html Presents s/p EAB 06-04-2017 at the [facility]. Vacum procedure still having some bleeding. Current c/o vaginal itching, did receive antibiotics during procedure. [facility]nt want control. [facility] 06/21/2017 15:06:29 01/17/2023 text/html throat swells at times... has trouble swallowing... happens after eating certain meals... no sx currently... no fevers/chills/SOB. .. recreational smoker... 1 drink monthly... no cigarette... Kaveh Delacruz MD Attn: Accounting,[address] [place], [address], [place] [facility] 01/17/2023 15:11:50 OBGyn Episode No OBEpisode recorded.
--- OUTSIDE RECORDS SUMMARY | 2024-07-21 14:35 | XMS_ITS | Data Portability ---
Author Organization [facility] Address [address] [place] [address] [place] [address] Assessment Encounter Date Assessment Date Assessment LastModified by Organization Details LastModified Time 04/10/2023 04/10/2023 Annual gynecological exam performed. Patient will come back in a year unless there are new symptoms. Not available 04/10/2023 17:11:23 04/20/2024 04/20/2024 Annual gynecological exam performed. Patient will come back in a year unless there are new symptoms. [email or web address] Not available 04/20/2024 16:25:54 Plan of Treatment Reminders Order Date Submit Date Provider Last Modified By Organization Details Last Modified Time Details Appointments None recorded. Lab unlisted lab - women's health swab plus, ROBERT 2023 024 [facility] (Lab), [address], [place], [address], 5 14:00:26 bacterial vaginosis + vaginitis panel, vaginal [email or web address] (Lab), [address] [facility], [place], [address], 5 15:09:41 Referral None recorded. Procedures None recorded. Surgeries None recorded. Imaging MAMMO, screening, digital, bilateral 2023 024 [facility], [address], [place] [address], [place], [address], 5 15:20:13 MAMMO, screening, bilateral [email or web address] [place] [address], [address], [place] [address], [place], [address], 4 16:01:53 Medication Orders metronidazo le 500 mg tablet 2023 024 [facility][id number], [address] [place], [address], 4 17:23:28 fluconazole 150 mg tablet 2023 024 [facility] #[id number], [address] [place], [address], 4 17:23:28 Diflucan 150 mg tablet 2023 024 [facility] [address], [address], 4 14:15:10 metronidazo le 500 mg tablet 2023 024 [email or web address] [facility] [address], [address], 4 16:26:53 fluconazole 150 mg tablet [address], [address], 4 14:15:07 nystatin-tr iamcinolone 100,000 unit/gram-0 .1 % topical ointment [address], [address], 3 17:17:16 Patient TargetsNo targets recorded. Patient InstructionsNo instructions recorded. Reason for Referral None Reported. Results Created Date Observation Date Name Description Value Unit Range Abnormal Flag Note LastModifiedBy Organization Detail LastModifiedTime 09/11/19 23 09/10/2022 CT/GC AND TRICH OMONA S VAGIN GERRY (RRNA ), SWAB chlamydia trachomatis, PCR NEGATI VE negati ve Not Available [facility] (Lab) [address] [facility], [place], [address], 09/11/2022 19:28:35 09/11/19 23 09/10/2022 CT/GC AND TRICH OMONA S VAGIN GERRY (RRNA ), SWAB neisseria gonorrhoeae, PCR NEGATI VE negati ve Not Available [facility] (Lab) [address] [facility], [place], [address], 09/11/2022 19:28:35 09/11/19 23 09/10/2022 CT/GC AND TRICH OMONA S VAGIN GERRY (RRNA ), SWAB trichomonas vaginalis ribosomal RNA (rrna) NEGATI VE negati ve Not Available [facility] (Lab) [address] [facility], [place], [address], 09/11/2022 19:28:35 09/11/19 23 09/10/2022 VAGIN ITIS/ VAGIN OSIS, DNA PROBE ana sp. detection, direct probe NEGATI VE negati ve Not Available [facility] (Lab) [address] [facility], [place], [address], 09/11/2022 19:28:36 09/11/19 23 09/10/2022 VAGIN ITIS/ VAGIN OSIS, DNA PROBE gardnerella vag. detection, direct probe NEGATI VE negati ve Not Available [facility] (Lab) [address] [place], [address], 09/11/2022 19:28:36 09/11/19 23 09/10/2022 VAGIN ITIS/ VAGIN OSIS, DNA PROBE trichomonas vag. detection, direct probe NEGATI VE negati ve Not Available [facility] (Lab) [address] [facility], [place], [address], 09/11/2022 19:28:36 04/11/20 23 04/11/2023 IMAGE GUIDE D PAP AND HPV REGAR DLESS image guided Pap, HPV regardless of Pap result SEE RESULT S BELOW CASE REPOR T: Cytol ogy Gynec ologi celena Repor t Case: [id number] Autho tami swan Provi rosendo: Gentry vergara , Celine Thompson cted: 04/11 0936 [employer]PECTOR Order ing Locat ion: [place] Patho logy [...] as clini lili warra nted. Not Available [facility] (Lab) [address] [facility], [place], [address], 04/17/2023 16:31:13 04/11/20 23 04/11/2023 TRICH OMONA S VAGIN GERRY (RRNA ) trichomonas vaginalis ribosomal RNA (rrna) NEGATI VE negati ve Not Available [facility] (Lab) [address] [facility], [place], [address], 04/17/2023 16:31:14 04/11/20 23 04/11/2023 CT/GC (CHIO) , THINP REP VIAL chlamydia trachomatis, PCR NEGATI VE negati ve Not Available [facility] (Lab) [address] [place], [address], 04/17/2023 16:31:14 04/11/20 23 04/11/2023 CT/GC (CHIO) , THINP REP VIAL neisseria gonorrhoeae, PCR NEGATI VE negati ve Not Available [facility] (Lab) [address] [facility], [place], [address], 04/17/2023 16:31:14 08/21/19 24 08/21/2023 CT/GC AND TRICH OMONA S VAGIN GERRY (RRNA ), SWAB chlamydia trachomatis, PCR Negati ve negati ve Not Available [facility] (Lab) [address] [facility], [place], [address], 08/22/2023 13:04:12 08/21/19 24 08/21/2023 CT/GC AND TRICH OMONA S VAGIN GERRY (RRNA ), SWAB neisseria gonorrhoeae, PCR Negati ve negati ve Not Available [facility] (Lab) [address] [facility], [place], [address], 08/22/2023 13:04:12 08/21/19 24 08/21/2023 CT/GC AND TRICH OMONA S VAGIN GERRY (RRNA ), SWAB trichomonas vaginalis ribosomal RNA (rrna) Negati ve negati ve Not Available [facility] (Lab) [address] [facility], [place], [address], 08/22/2023 13:04:12 12/11/19 24 12/11/2023 VAGIN ITIS/ VAGIN OSIS, DNA PROBE ana sp. detection, direct probe Negati ve negati ve Not Available [facility] (Lab) [address] [place], [address], 12/12/2023 10:15:12 12/11/19 24 12/11/2023 VAGIN ITIS/ VAGIN OSIS, DNA PROBE gardnerella vag. detection, direct probe Positi ve negati ve abnormal Not Available [facility] (Lab) [address] [facility], [place], [address], 12/12/2023 10:15:12 12/11/19 24 12/11/2023 VAGIN ITIS/ VAGIN OSIS, DNA PROBE trichomonas vag. detection, direct probe Negati ve negati ve Not Available [facility] (Lab) [address] [place], [address], 12/12/2023 10:15:12 04/20/20 24 04/20/2024 [facility] ROBERT bacterial vaginosis (bv), tma Positi ve negati ve abnormal Not Available [facility] (Lab) [address] [place], [address], 04/22/2024 14:00:26 04/20/20 24 04/20/2024 [facility], ROBERT ana species, tma Negati ve negati ve Not Available [facility] (Lab) [address] [facility], [place], [address], 04/22/2024 14:00:26 04/20/20 24 04/20/2024 [facility], ROBERT ana glabrata, tma Negati ve negati ve Not Available [facility] (Lab) [address] [place], [address], 04/22/2024 14:00:26 04/20/20 24 04/20/2024 [facility], ROBERT trichomonas vaginalis, tma Negati ve negati ve Not Available [facility] (Lab) [address] [place], [address], 04/22/2024 14:00:26 04/20/20 24 04/20/2024 [facility], ROBERT chlamydia trachomatis, PCR Negati ve negati ve Not Available [facility] (Lab) [address] [place], [address], 04/22/2024 14:00:26 04/20/20 24 04/20/2024 [facility], ROBERT neisseria [...] ded in this panel . Not Available [facility] (Lab) [address] [facility], [place], [address], 04/22/2024 14:00:26 07/18/19 25 07/14/2024 MAMMO , scree abisai, digit al, bilat eral No observ ation record ed. [address] (Mammography) [address], [place], [address], 07/20/2024 10:51:45 Result Notes None recorded. Procedures Surgical History Date Name Laterality Status Provider Name and Address Organization Details Recorded Time 04/11/20 23 Date of Last Pap Smear completed Marisabel Tellez [facility] 08/21/2023 09:19:34 03/22/20 22 termination of completed Bing Shultz [facility] 04/05/2022 14:20:25 Colonoscopy completed Alysha Brewer [facility] 09/10/2022 11:57:52 Imaging Results Imaging Date Name Status LastModified by Organiz ation Details LastModified Time 07/14/2024 MAMMO, screening, digital, bilateral completed [address] (Mammography) [address], [place], [address], 07/20/2024 10:51:45 Procedure Notes None recorded. Medical Equipment None [...] cm 117 mm[Hg] 79 mm[Hg] Alysha Brewer [facility] 09/10/2022 11:57:45 Date Recorded Body height Body mass index (BMI) Body weight Systolic blood pressure Diastolic blood pressure Provider Name and Address Organization Details Last Updated DateTime 04/10/2023 160.02 cm 31 kg/m2 66740.66 g 112 mm[Hg] 77 mm[Hg] Shauna Sylvester [facility] 3 17:16:46 Date Recorded Body height Body mass index (BMI) Body weight Systolic blood pressure Diastolic blood pressure Provider Name and Address Organization Details Last Updated DateTime 08/21/2023 160.02 cm 30.1 kg/m2 46351.7 g 129 mm[Hg] 84 mm[Hg] Marisabel Tellez [facility] 4 09:18:31 Date Recorded Body height Body mass index (BMI) Body weight Systolic blood pressure Diastolic blood pressure Provider Name and Address Organization Details Last Updated DateTime 04/20/2024 160.02 cm 32.8 kg/m2 37915.59 g 132 mm[Hg] 87 mm[Hg] Diana Jaimes [facility] 4 16:55:29 Social History Question Answer Notes LastModified by Organizat ion Details LastModified Time Tobacco Smoking Status Never Smoker Alysha chadwick, [facility] 09/10/2022 11:57:49 Do You Have An Advance Directive? No [email or web address] Information n ot available 04/20/2024 What Is [...] Or The Highest Degree You Have Received? NS66715-2 Information not available 08/21/2023 Are There Any [...] Anxious, Or Unable To Sleep At Night)? [id number] Information not available 08/21/2023 Do You Use [...] Time Paternal Grandmother Malignant tumor of breast [email or web address] Not available 2021 14:48:57 Mother Diabetes mellitus [...] SNOMED-CT Code Diagnosis ICD10 Code Diagnosis Note [id number] Alcon Gaxiola MD [place] [address] [address] 04/05/2022 13:59:06 04/05/2022 15:01:35 Gynecologic examination 40732892 Z01.419 Annual gynecologi celena exam performed. Patient [...] Cholestero l - labs Pap - today [id number] Bing Shultz [place] [address] [address] 04/26/2022 13:52:06 04/26/2022 16:45:57 Contraception care management 584599409 Z30.9 [id number] BELL Nobles [place] [address],[place] [address] 07/24/2022 11:02:19 07/24/2022 15:06:03 Vaginitis 60938091 N76.0 suspect BV/yeast on examvagini tis panel sentSTI endocervic al testing sentblood STI testing declinedvu lvar care guidelines discussedR x sent, R/B/A discussed Contracept ion care management 232176152 Z30.9 Spotting for 2 months after starting [...] counseling and review of plan of care. [id number] Holli Cordero [facility] [place] [address],[place] [address] 09/10/2022 11:48:12 09/10/2022 12:26:19 Vaginitis 61715952 N76.0 BROWN sent for (+) trichomona svaginitis panel sentvulvar care guidelines discussed, d/c use of fragrance soaps/prod uctscondom use encouraged rx sent, R/B/A discussedw ill update patient with results when available Time spent in visit is a total of 22 mins with at least 50% of visit consisting of counseling and review of plan of care. Infection by Trichomonas 04822399 A59.9 Venereal d isease screening 743095808 Z11.3 [id number] [facility] [address],[place] [address] 04/10/2023 16:55:13 04/10/2023 17:36:19 Gynecologic examination 09583809 Z01.419 Take Calcium with Vitamin D 1200mg [...] na Routine Labs PCP Screening mammography 24 242015 Z12.31 [id number] [facility] [address] [address] 08/21/2023 09:15:59 08/21/2023 10:30:11 Vaginitis 44217894 N76.0 Suspect yeast/BV on exam todayWante d [...] counseling and review of plan of care. [id number] Christin Colvin [place] [address] [address] 12/11/2023 17:02:42 12/11/2023 17:18:57 Vaginal irritation 217850179 N89.8 [id number] SAMI PINEDA NP [place] [address] [address] 04/20/2024 16:37:51 04/20/2024 17:40:11 Gynecologic examination 52145975 Z01.419 Annual gynecologi celena exam performed. Patient [...] pt to schedule Pap smear- UTD (2022- WN), will repeat in 2025 per ASCCP guidelines [...] referral is recommende d. Screening mammography 24 057300 Z12.31 Vaginal discharge 332100 006 N89.8 Discussed empirical treatment with metronidaz ole and fluconazol e for suspected BV and yeast based on reported symptoms and physical exam findings.D iscussed vulvar care guidelines in addition to laundry/sk in irritants to avoid.Gael mmended boric acid capsules - insert one capsule vaginally at H.S. after period, intercours e, and/or with symptoms. Venereal d isease screening 293514119 Z11.3 Pt requested STI testing for GC/CT/tric [...] Ruiz Member ID Guarantor Name 09/10/2022 1 [employer] [id number] Letaisha Green [id number] 1 [id number] Letaisha Green 04/10/2023 1 [employer] [id number] Letaisha Green [id number] 1 [id number] Letaisha Green 08/21/2023 1 [employer] [id number] Letaisha Green [id number] Letaisha Green 12/11/2023 1 [employer] [id number] Letaisha Green [id number] Letaisha Green 04/20/2024 1 [employer] ([employer]) [id number] Letaisha Green [id number] Letaisha Green Notes Date Note Type Note Provider Name and Address Organization Details Recorded Time 09/10/2022 text/html 37yopresents for BROWN(+) trichomonas 07/24/22. Completed treatment, no longer with partnersymptoms resolved after treatmentused a new scented roni soap last week and now has been having vaginal itchingneg odorsneg d/cneg pelvic painDepo for BC Holli Cordero, BELL [address], [place], [address], [facility] 09/10/2022 12:17:38 04/10/2023 text/html Annual [...] pap smears; Needs to schedule [facility]ogram [facility] [address], [place], [address], [facility] 04/10/2023 17:35:30 08/21/2023 text/html Vaginal/Vulvar ProblemReported bypatient.Location:[facility] Onset/Timing:occurs after menses; abrupt Duration:present for 1-7 days Quality:itching; irritation (+odor/minimal d/c) Severity:mild Context:sexually active Alleviating Factors:none Aggravating Factors:none Associated Symptoms:no vaginal pain; no vulvar itching/irritation; no vulvar swelling/erythema; no vulvar pain; no vulvar lesions; no pelvic pain; no dyspareunia; no dysuria; no fever; no abdominal pain;vaginal itching;vaginal irritation; +vag odor [facility] [address], [place], [address], [facility] 08/21/2023 10:12:47 04/20/2024 text/html Annual GYNReport [...] Patient's partner has never had children. SAMI DERMODY, TRIN[facility] [address], [place], [address], [place] [facility] 04/20/2024 17:34:46 OBGyn Episode Ob Episode Information Episode Created Date Number of Fetuses Patient Bloodtype Patient rh Status Prepregnancy Weight lbs Domestic Partner Domestic Partner Phone Father Name Construction Code Administrator Status 04/05/20 22 1 CLOSED Fetus Data First Name Last Name Admitted to NICU Weight (g) Sex Living Outcome Pediatric Complications Fetus ID Race Codes Race Delivery Type F Full Term 16580 Vaginal Delivery Pieter Calculation Initial Pieter Date [...] Domestic Partner Domestic Partner Phone Father Name Construction Code Administrator Status 04/05/20 22 1 CLOSED Fetus Data First Name Last Name Admitted to NICU Weight (g) Sex Living Outcome Pediatric Complications Fetus ID Race Codes Race Delivery Type M Prematur e 98582 Vaginal Delivery Pieter Calculation Initial Pieter Date [...] Domestic Partner Domestic Partner Phone Father Name Construction Code Administrator Status 04/05/20 22 1 CLOSED Fetus Data First Name Last Name Admitted to NICU Weight (g) Sex Living Outcome Pediatric Complications Fetus ID Race Codes Race Delivery Type M Full Term 82448 Vaginal Delivery Pieter Calculation Initial Pieter Date [...] Domestic Partner Domestic Partner Phone Father Name Construction Code Administrator Status 04/05/20 22 1 CLOSED Fetus Data First Name Last Name Admitted to NICU Weight (g) Sex Living Outcome Pediatric Complications Fetus ID Race Codes Race Delivery Type , Spontane ous 86280 Pieter Calculation Initial Pieter Date Initial Exam [...] Domestic Partner Domestic Partner Phone Father Name Construction Code Administrator Status 04/05/20 22 1 CLOSED Fetus Data First Name Last Name Admitted to NICU Weight (g) Sex Living Outcome Pediatric Complications Fetus ID Race Codes Race Delivery Type , Spontane ous 14775 Pieter Calculation Initial Pieter Date Initial Exam [...]
== END 2024-07-21 13:28 | disposition home or self-care (01) ==
PROVIDERS: PCP Student in an Organized Health Care Education/Training Program; Visit Provider Student in an Organized Health Care Education/Training Program
DX: N64.89 Other specified disorders of breast (principal)
CPT/HCPCS: 76642; 77061; 77065; G0279